=== PATIENT | male | born 1970 | race Hispanic/Latino ===

== ENCOUNTER 2017-07-09 21:51 | Inpatient (IN) | payer OTHER ==
[2017-07-09 22:51] LABS: Hematocrit 49.6 % (35.5-45.6); Hemoglobin 16.7 gm/dl (11.8-15.2); Mean Corpuscular HGB Conc 34 % (32-34); Mean Corpuscular Hemoglobin 30 pg (28-32); Mean Corpuscular Volume 90 fl (84-94); Platelet Count 265 K/mm3 (140-440); Red Blood Count 5.49 M/mm3 (3.65-5.03); Red Cell Distribution Width 13.5 % (13.2-15.2); White Blood Count 16.9 K/mm3 (4.5-11.0)
--- NOTE | 2017-07-09 22:51 | XRay Report ---
FINAL REPORT PROCEDURE: XR CHEST ROUTINE 2V TECHNIQUE: PA and lateral chest radiographs were obtained. CPT 63138 HISTORY: Shortness of breath COMPARISON: No prior studies are available for comparison. FINDINGS: Heart: Normal. Mediastinum/Vessels: There are surgical clips in the right mediastinal and hilar regions. Lungs/Pleural space: There is a moderate-sized right pleural effusion. There is blunting of the left posterior costophrenic sulcus, which may be related to a small effusion or pleural thickening. There is scarring and surgical clips at the right lung base. Upper lungs are well aerated. Bony thorax: No acute osseous abnormality. Other: IMPRESSION: Right lung postsurgical changes. There is moderate-sized right pleural effusion and small left pleural effusion versus pleural thickening
[2017-07-09 23:14] LABS: Anion Gap 23 mmol/L; BUN/Creatinine Ratio 11; Blood Urea Nitrogen 12 mg/dL (9-20); Calcium 9.3 mg/dL (8.4-10.2); Carbon Dioxide 22 mmol/L (22-30); Chloride 98.3 mmol/L (98-107); Glucose 98 mg/dL (75-100); Potassium 4.9 mmol/L (3.6-5.0); Sodium 138 mmol/L (137-145)
[2017-07-09 23:17] LABS: Basophils % (Manual) 0 % (0.0-1.8); Blastocytes % (Manual) 0 %; Diff Status Complete; Eosinophils % (Manual) 0 % (0.0-4.3); RBC Morphology Normal
[2017-07-10] MEDS ORDERED: PROVENTIL IH ONE ×2 (10:52→11:22)
[2017-07-10] MEDS ORDERED: ATROVENT IH ONE ×2 (10:52→11:22)
[2017-07-10] MEDS ORDERED: ROCEPHIN/NS 1 GM/50 ML 1 GM/50 ML BAG IV ONE (11:19)
[2017-07-10] MEDS ORDERED: DILAUDID IV ONE ×2 (11:19→12:50)
[2017-07-10] MEDS ORDERED: ZOFRAN IV ONE (11:19)
[2017-07-10] MEDS ORDERED: ZITHROMAX 500 MG in NACL 0.9% 250ML 250 ML IV ONE (12:00)
[2017-07-10] MEDS ORDERED: cefTRIAXone 1 GM in NACL 0.9% 20 ML IV ONE (12:30)
--- NOTE | 2017-07-10 12:48 | Cat Scan Report ---
CTA CHEST: HISTORY: Right sided chest pain, cough, fever, shortness of breath. COMPARISON: none. TECHNIQUE: Helical CT in 1.25mm intervals following IV contrast. Pulmonary embolus protocol. Sagittal and coronal reformatted images. Rotational MIP images. FINDINGS: Contrast bolus is satisfactory. No pulmonary embolus is identified. Thyroid gland: Normal. Tracheobronchial tree: Normal. Esophagus: Normal. Heart: Normal. Pericardium: Normal. Mediastinum: Normal. Lung [place]: Mild to moderate emphysematous changes are suspected. No evidence for mass, infiltrate or pneumothorax. Right thoracotomy changes are suspected, correlate with history. Pleural Spaces: Small right pleural effusion. Musculoskeletal: Unremarkable. IMPRESSION: No evidence for pulmonary embolus. Emphysematous changes. Small right pleural effusion. Suggestion of previous right thoracotomy changes, correlate with history.
[2017-07-10] MEDS ORDERED: TESSALON PERLES PO ONE (13:40)
--- NOTE | 2017-07-10 13:57 | Emergency Department Report ---
ED Shortness of Breath HPI - General Chief Complaint: Dyspnea/Respdistress Stated Complaint: SOB X 8 DAYS Time Seen by Provider: 07/10/17 10:15 Source: patient Mode of arrival: Ambulatory Limitations: No Limitations - History of Present Illness Initial Comments: 46-year-old male with a past medical history of asthma, Tourette's syndrome, necrotizing pneumonia requiring right lower lobe lobectomy in 2013 visits to the hospital complaining of right sided chest wall pain and shortness of breath. Patient has had shortness of breath the surgery that has progressively worsened. Patient complains of severe sharp right sided chest wall pain that feels like a sunburn. Pain increases with stretching, coughing, movement, or deep inspiration. Positive so she shortness of breath with intermittent wheezing. Positive productive cough for patient doesn't have a streptococcal or secretions. Fever 2 days reported at 102.3. PMD [facility] practice - Related Data Home Medications Medication Instructions Recorded Confirmed Last Taken OLANzapine [ZyPREXA] 5 mg PO QDAY 03/31/14 03/31/14 03/31/14 22:00 Previous Rx's Medication Instructions Recorded Last Taken Type Ondansetron [Zofran Odt] 8 mg PO TID PRN #20 tab.rapdis 04/01/14 Unknown Rx HYDROcodone/APAP 10-325 [Babylon 1 each PO Q8HR PRN #15 tablet 05/27/14 Unknown Rx 10-325 mg TAB] Promethazine [Phenergan] 25 mg PO Q6H PRN #15 tablet 05/27/14 Unknown Rx ALBUTEROL NEB's [Proventil 0.083% 2.5 mg IH TID PRN #1 neb 08/14/14 Unknown Rx NEBS] Ibuprofen [Motrin 800 MG tab] 800 mg PO TID PRN #21 tablet 08/14/14 Unknown Rx HYDROcodone/APAP 7.5-325 [Babylon 1 each PO Q8HR PRN #15 tablet 10/11/15 Unknown Rx 7.5/325] predniSONE [Deltasone] 20 mg PO QDAY #14 tab 10/11/15 Unknown Rx Oxycodone HCl/Acetaminophen 1 each PO Q6HR PRN #30 tablet 06/03/16 Unknown Rx [Percocet 10/325 mg] methOCARBAMOL [Robaxin TAB] 1,000 mg PO Q6H PRN #40 tab 06/03/16 Unknown Rx methOCARBAMOL [Robaxin TAB] 500 mg PO Q6H PRN #15 tablet 09/11/16 Unknown Rx oxyCODONE /ACETAMINOPHEN [Percocet 1 tab PO Q6HR PRN #14 tablet 09/11/16 Unknown Rx 5/325] Allergies Allergy/AdvReac Type Severity Reaction Status Date / Time ketorolac tromethamine Allergy Vomiting Verified 05/27/14 15:42 [From Toradol] tramadol AdvReac Unknown Verified 05/27/14 15:42 ED Review of Systems ROS: Stated complaint: SOB X 8 DAYS Other details as noted in HPI Comment: All other systems reviewed and negative Other: Constitutional: as per hpi Eyes: No eye pain visual changes or discharge ENT: No ear pain or throat pain Neck: Denies pain Respiratory: as per hpi Cardiovascular: Denies palpitations, syncope GI: Denies abdominal pain, nausea, vomiting, diarrhea : Denies dysuria Musculoskeletal: Denies back pain Skin: Denies rash, lesions, erythema Neurologic: Denies headache, numbness, weakness Psychiatric: Denies suicidal ideation, hallucinations ED Past Medical Hx - Past Medical History Hx Hypertension: No Hx Heart Attack/AMI: No Hx Congestive Heart Failure: No Hx Diabetes: No Hx Deep Vein Thrombosis: No Hx GERD: Yes Hx Liver Disease: No Hx Renal Disease: No Hx Sickle Cell Disease: No Hx Arthritis: No Hx Seizures: No Hx Kidney Stones: No Hx Psychiatric Treatment: Yes (TOURETTE SYNDROME) Hx Asthma: Yes Hx COPD: No Hx Dementia: No Hx HIV: No Additional medical history: necrotizing pneumonia- september 2013 - Surgical History Hx Coronary Stent: No Hx Open Heart Surgery: No Hx Pacemaker: No Hx Internal Defibrillator: No Hx Cholecystectomy: No Hx Appendectomy: No Hx Breast Surgery: No Additional Surgical History: Left testicle removed @ age 16, Bakari in left leg @ age 26, R lower lobectomy - Social History Smoking Status: Never Smoker Substance Use Type: None - Medications Home Medications: Home Medications Medication Instructions Recorded Confirmed Last Taken Type OLANzapine [ZyPREXA] 5 mg PO QDAY 03/31/14 03/31/14 03/31/14 22:00 History Ondansetron [Zofran Odt] 8 mg PO TID PRN #20 tab.rapdis 04/01/14 Unknown Rx HYDROcodone/APAP 10-325 [Babylon 1 each PO Q8HR PRN #15 tablet 05/27/14 Unknown Rx 10-325 mg TAB] Promethazine [Phenergan] 25 mg PO Q6H PRN #15 tablet 05/27/14 Unknown Rx ALBUTEROL NEB's [Proventil 0.083% 2.5 mg IH TID PRN #1 neb 08/14/14 Unknown Rx NEBS] Ibuprofen [Motrin 800 MG tab] 800 mg PO TID PRN #21 tablet 08/14/14 Unknown Rx HYDROcodone/APAP 7.5-325 [Babylon 1 each PO Q8HR PRN #15 tablet 10/11/15 Unknown Rx 7.5/325] predniSONE [Deltasone] 20 mg PO QDAY #14 tab 10/11/15 Unknown Rx Oxycodone HCl/Acetaminophen 1 each PO Q6HR PRN #30 tablet 06/03/16 Unknown Rx [Percocet 10/325 mg] methOCARBAMOL [Robaxin TAB] 1,000 mg PO Q6H PRN #40 tab 06/03/16 Unknown Rx methOCARBAMOL [Robaxin TAB] 500 mg PO Q6H PRN #15 tablet 09/11/16 Unknown Rx oxyCODONE /ACETAMINOPHEN [Percocet 1 tab PO Q6HR PRN #14 tablet 09/11/16 Unknown Rx 5/325] ED Physical Exam - General Limitations: No Limitations - Other Other exam information: General: No limitations, patient is alert in no acute distress Head exam: Atraumatic, normocephalic Eyes exam: Normal appearance ENT: Moist mucous membrane, normal oropharynx Neck exam: Normal inspection, full range of motion, no meningismus nontender Respiratory exam: Right lateral thoracic surgical scar. Reproducible Right chest wall tenderness to palpation Cardiovascular: Normal rate and rhythm, normal heart sounds Abdomen: Soft, nondistended, and nontender, with normal bowel sounds, no rebound, or guarding Extremity: Full range of motion normal inspection no deformity, no calf tenderness or edema Back: Normal Inspection, full range of motion, no tenderness Neurologic: Alert, oriented x3, cranial nerves intact, no motor or sensory deficit Psychiatric: normal affect, normal mood Skin: Warm, dry, intact ED Course Vital Signs 07/09/17 07/10/17 07/10/17 22:05 07:58 10:32 Temperature 97.9 F 98.5 F Pulse Rate 102 H 92 H 92 H Respiratory 16 18 21 Rate Blood Pressure 155/97 Blood Pressure 138/93 119/98 [Right] O2 Sat by Pulse 97 94 96 Oximetry 07/10/17 07/10/17 12:50 13:41 Temperature Pulse Rate 124 H 100 H Respiratory 22 19 Rate Blood Pressure Blood Pressure 160/91 143/87 [Right] O2 Sat by Pulse 97 95 Oximetry - Reevaluation(s) Reevaluation #1: 07/10/17 14:11 Patient had a repeat episode of right-sided chest pain with associated tachycardia secondary to pain. Right-sided chest pain rated 3/10 intensity. IV Rocephin and azithromycin initiated in the ED as well as Solu-Medrol 125. Patient treated with albuterol 10 mg and Atrovent 0.5 mg for shortness of breath and reports improvement 07/10/17 14:29 Patient removed with 2 L oxygen O2 saturation decreased to 86% on room air ED Medical Decision Making - Lab Data Result diagrams: 07/09/17 22:16 07/09/17 22:16 Lab Results 07/09/17 07/09/17 Range/Units 22:16 22:16 WBC 16.9 H (4.5-11.0) K/mm3 RBC 5.49 H (3.65-5.03) M/mm3 Hgb 16.7 H (11.8-15.2) gm/dl Hct 49.6 H (35.5-45.6) % MCV 90 (84-94) fl MCH 30 (28-32) pg MCHC 34 (32-34) % RDW 13.5 (13.2-15.2) % Plt Count 265 (140-440) K/mm3 Add Manual Diff Complete Total Counted 100 Seg Neutrophils % Director Talent Seg Neuts % (Manual) 92.0 H (40.0-70.0) % Band Neutrophils % 0 % Lymphocytes % (Manual) 5.0 L (13.4-35.0) % Reactive Lymphs % (Man) 0 % Monocytes % (Manual) 3.0 (0.0-7.3) % Eosinophils % (Manual) 0 (0.0-4.3) % Basophils % (Manual) 0 (0.0-1.8) % Metamyelocytes % 0 % Myelocytes % 0 % Promyelocytes % 0 % Blast Cells % 0 % Nucleated RBC % Not Reportable Seg Neutrophils # Man 15.5 H (1.8-7.7) K/mm3 Band Neutrophils # 0.0 K/mm3 Lymphocytes # (Manual) 0.8 L (1.2-5.4) K/mm3 Abs React Lymphs (Man) 0.0 K/mm3 Monocytes # (Manual) 0.5 (0.0-0.8) K/mm3 Eosinophils # (Manual) 0.0 (0.0-0.4) K/mm3 Basophils # (Manual) 0.0 (0.0-0.1) K/mm3 Metamyelocytes # 0.0 K/mm3 Myelocytes # 0.0 K/mm3 Promyelocytes # 0.0 K/mm3 Blast Cells # 0.0 K/mm3 WBC Morphology Not Reportable Hypersegmented Neuts Not Reportable Hyposegmented Neuts Not Reportable Hypogranular Neuts Not Reportable Smudge Cells Not Reportable Toxic Granulation Not Reportable Toxic Vacuolation Not Reportable Dohle Bodies Not Reportable Pelger-Huet Anomaly Not Reportable Nghia Rods Not Reportable Platelet Estimate Appears normal Clumped Platelets Not Reportable Plt Clumps, EDTA Not Reportable Large Platelets Not Reportable Giant Platelets Not Reportable Platelet Satelliting Not Reportable Plt Morphology Comment Not Reportable RBC Morphology Normal Dimorphic RBCs Not Reportable Polychromasia Not Reportable Hypochromasia Not Reportable Poikilocytosis Not Reportable Anisocytosis Not Reportable Microcytosis Not Reportable Macrocytosis Not Reportable Spherocytes Not Reportable Pappenheimer Bodies Not Reportable Sickle Cells Not Reportable Target Cells Not Reportable Tear Drop Cells Not Reportable Ovalocytes Not Reportable Helmet Cells Not Reportable [place] Bodies Not Reportable [place] Rings Not Reportable [place] Cells Not Reportable Bite Cells Not Reportable Crenated Cell Not Reportable Elliptocytes Not Reportable Acanthocytes (Spur) Not Reportable Rouleaux Not Reportable Hemoglobin C Crystals Not Reportable Schistocytes Not Reportable Malaria parasites Not Reportable Vivek Bodies Not Reportable Hem Pathologist Commnt No Sodium 138 (137-145) mmol/L Potassium 4.9 (3.6-5.0) mmol/L Chloride 98.3 (98-107) mmol/L Carbon Dioxide 22 (22-30) mmol/L Anion Gap 23 mmol/L BUN 12 (9-20) mg/dL Creatinine 1.1 (0.8-1.5) mg/dL Estimated GFR > 60 ml/min BUN/Creatinine Ratio 11 % Glucose 98 (75-100) mg/dL Calcium 9.3 (8.4-10.2) mg/dL Troponin T < 0.010 (0.00-0.029) ng/mL - EKG Data -: EKG Interpreted by Me EKG shows normal: sinus rhythm, axis (78), QRS complexes (80), ST-T waves (no stemi/t inv) Rate: normal (90) - EKG Data When compared to previous EKG there are: no significant change (09/10/16) - Radiology Data Radiology results: report reviewed chest xray: r lung postsurgical changes, moderate-sized pleural effusion and small plerual effusion vs pleural thickening CT angio chest: no pulm embolus, emphysematous changes, small right pleural effusion - Medical Decision Making Pt o2 sat decreased to 86% on room air, 2 L o2 reapplied. Pt will be admitted to the hospital for further treatment since pt does not take home oxygen. Patient received Rocephin, azithromycin IV, IV Solu-Medrol, in addition to Dilaudid and Zofran. - Differential Diagnosis PE, pneumonia, bronchitis, CHF, pleurisy, effusion Critical Care Time: No Critical care attestation.: If time is entered above; I have spent that time in minutes in the direct care of this critically ill patient, excluding procedure time. ED Disposition Clinical Impression: Right-sided chest wall pain, Acute bronchitis, Emphysema, Hypoxia, History of lobectomy of lung Disposition: OP ADMIT IP TO THIS HOSP Is pt being admited?: Yes Condition: Stable Time of Disposition: 14:30 (Dr Hartley/hosp)
[2017-07-10] MEDS ORDERED: ATIVAN IV ONE (14:56)
[2017-07-10] MEDS ORDERED: TYLENOL PO PRN (15:16)
[2017-07-10] MEDS ORDERED: MILK OF MAGNESIA PO PRN (15:16)
[2017-07-10] MEDS ORDERED: DULCOLAX PR PRN (15:16)
[2017-07-10] MEDS ORDERED: PROVENTIL IH PRN (15:16)
[2017-07-10] MEDS ORDERED: NACL 0.9% 1000 ML IV ONE (15:16)
[2017-07-10] MEDS ORDERED: VANCOMYCIN VIAL IV ONE (15:16)
[2017-07-10] MEDS ORDERED: PHENERGAN PO PRN (15:26)
[2017-07-10] MEDS ORDERED: MOTRIN PO PRN (15:26)
[2017-07-10] MEDS ORDERED: ZOFRAN ODT PO PRN (15:26)
[2017-07-10] MEDS ORDERED: VANCOMYCIN PHARMACY TO DOSE IV SCH (16:00)
[2017-07-10] MEDS ORDERED: VANCOMYCIN 2,000 MG in NACL 0.9% 500 ML 500 ML IV ONE (17:00)
[2017-07-10] MEDS: ZOSYN/NS 4.5GM/100ML 4.5 GM/100 ML VIAL IV SCH (18:01)
--- NOTE | 2017-07-10 18:11 | History and Physical Report ---
History of Present Illness Date of admission: 07/10/17 15:16 Chief complaint: its hard to breathe. History of present illness: 46 YO Male with GERD, [place], Tourette's Syndrome, Necrotizing Pneumonia S/P Lobectomy presents to ED for evaluation. Pt states that he has experienced fever to 102.3 and shortness of breath over the past 2 days with worsening symptoms over that same time period. Upon further questioning, Pt denies chest pain but acknowledges chest discomfort with deep breathing, coughing, or deep inspiration. No reported shaking chills, NVD, CP, Palpitations, hemoptysis, BRBPR, productive cough, or recent ill contacts. Pt seen and evaluated in ED and found to be in respiratory distress, and had evidence of sepsis. Pt treated IAW sepsis protocol. Past History Past Medical History: GERD, other (Tourette) Past Surgical History: Other (Left Testicle, R lobectomy, Left leg surgery) Social history: . denies: smoking, alcohol abuse, prescription drug abuse Family history: hypertension Medications and Allergies Allergies Allergy/AdvReac Type Severity Reaction Status Date / Time ketorolac tromethamine Allergy Vomiting Verified 05/27/14 15:42 [From Toradol] tramadol AdvReac Unknown Verified 05/27/14 15:42 Home Medications Medication Instructions Recorded Confirmed Last Taken Type ALBUTEROL NEB's [Proventil 0.083% 2.5 mg IH TID PRN #1 neb 08/14/14 07/10/17 Unknown Rx NEBS] ALBUTEROL Inhaler [Proair] 2 puff IH QID PRN 07/10/17 07/10/17 Unknown History Active Meds: Active Medications Acetaminophen (Tylenol) 650 mg PO Q4H PRN PRN Reason: Pain MILD(1-3)/Fever >100.5/BURRELL Acetaminophen/Hydrocodone Bitart (Amery 10/325) 1 each PO Q8HR PRN PRN Reason: Pain Albuterol (Proventil) 2.5 mg IH Q4HRT PRN PRN Reason: Shortness Of Breath Bisacodyl (Dulcolax) 10 mg [place] QDAY PRN PRN Reason: Constipation unrelieved by MOM Piperacillin Sod/Tazobactam Sod (Zosyn/Ns 4.5gm/100ml) 4.5 gm in 100 mls @ 200 mls/hr IV Q8H ALIYA PRN Reason: Protocol Last Admin: 07/10/17 18:01 Dose: 200 mls/hr Vancomycin HCl 2,000 mg/ (Sodium Chloride) 520 mls @ 250 mls/hr IV ONCE.ED ONE Stop: 07/10/17 19:04 Ibuprofen (Motrin) 800 mg PO TID PRN PRN Reason: Pain Magnesium Hydroxide (Milk Of Magnesia) 30 ml PO Q4H PRN PRN Reason: Constipation Methocarbamol (Robaxin) 500 mg PO Q6H PRN PRN Reason: Pain Olanzapine (Zyprexa) 5 mg PO QDAY ALIYA Ondansetron HCl (Zofran) 4 mg IV Q8H PRN PRN Reason: N/V unrelieved by Reglan Ondansetron HCl (Zofran Odt) 8 mg PO TID PRN PRN Reason: Nausea Prednisone (Deltasone) 20 mg PO QDAY ALIYA Promethazine HCl (Phenergan) 25 mg PO Q6H PRN PRN Reason: Nausea Vancomycin HCl (Vancomycin Pharmacy To Dose) 1 each IV PKCONSULT ALIYA PRN Reason: Protocol Review of Systems Constitutional: fever, no weight loss, no weight gain, no chills, no sweats Cardiovascular: shortness of breath, no chest pain, no orthopnea, no palpitations, no rapid/irregular heart beat, no edema, no syncope, no dyspnea on exertion, no paroxysmal nocturnal dyspnea, no claudication, no phlebitis Respiratory: no cough, no cough with sputum, no excessive sputum Gastrointestinal: no nausea, no vomiting, no diarrhea Genitourinary Male: no dysuria, no hematuria, no flank pain, no discharge, no urinary frequency Rectal: no pain, no incontinence, no bleeding Musculoskeletal: no neck stiffness, no neck pain, no shooting arm pain, no arm numbness/tingling, no low back pain Integumentary: no rash, no pruritis, no redness, no sores, no wounds, no jaundice Neurological: no transient paralysis, no paralysis, no weakness, no parathesias , no numbness, no tingling, no seizures, no syncope Psychiatric: no anxiety, no memory loss, no change in sleep habits, no sleep disturbances, no insomnia, no hypersomnia, no change in appetite Endocrine: no cold intolerance, no heat intolerance, no polyphagia, no excessive thirst, no polydipsia, no polyuria, no nocturia, no excessive sweating Hematologic/Lymphatic: no easy bruising, no easy bleeding Allergic/Immunologic: no urticaria, no allergic rhinitis, no wheezing Exam - Constitutional Vitals: Temp Pulse Resp BP Pulse Ox 98.5 F 114 H 19 148/91 95 07/10/17 10:32 07/10/17 15:25 07/10/17 13:41 07/10/17 15:25 07/10/17 13:41 General appearance: Present: mild distress - EENT Eyes: Present: PERRL ENT: hearing intact, clear oral mucosa - Neck Neck: Present: supple, normal ROM - Respiratory Respiratory effort: labored Respiratory: bilateral: diminished, rhonchi - Cardiovascular Heart Sounds: Present: S1 & S2. Absent: rub, click - Extremities Extremities: pulses symmetrical, No edema Peripheral Pulses: within normal limits - Abdominal General gastrointestinal: Present: soft, non-tender, non-distended, normal bowel sounds Male genitourinary: Present: normal - Integumentary Integumentary: Present: clear, warm, dry - Musculoskeletal Musculoskeletal: gait normal, strength equal bilaterally - Psychiatric Psychiatric: appropriate mood/affect, intact judgment & insight - Neurologic Neurologic: CNII-XII intact, moves all extremities Results - Labs CBC & Chem 7: 07/09/17 22:16 07/09/17 22:16 Labs: Abnormal lab results 07/09/17 Range/Units 22:16 WBC 16.9 H (4.5-11.0) K/mm3 RBC 5.49 H (3.65-5.03) M/mm3 Hgb 16.7 H (11.8-15.2) gm/dl Hct 49.6 H (35.5-45.6) % Seg Neuts % (Manual) 92.0 H (40.0-70.0) % Lymphocytes % (Manual) 5.0 L (13.4-35.0) % Seg Neutrophils # Man 15.5 H (1.8-7.7) K/mm3 Lymphocytes # (Manual) 0.8 L (1.2-5.4) K/mm3 Assessment and Plan - Patient Problems (1) Sepsis Current Visit: Yes Status: Acute Plan to address problem: IV abx, IVF, blood cultures, urinalysis, Chest XR, serial lactic acid level, monitor uop q shift, (2) Respiratory failure Current Visit: Yes Status: Acute Plan to address problem: Supplemental oxygen, nebs, aspiration precautions, NIPPV as clinically indicated , treat sepsis, (3) Accelerated hypertension Current Visit: Yes Status: Acute Plan to address problem: monitor bp q shift, hydralazine prn for systolic above 155, continue medical management (4) GERD (gastroesophageal reflux disease) Current Visit: No Status: Chronic Plan to address problem: PPI therapy (5) DVT prophylaxis Current Visit: Yes Status: Acute
[2017-07-10] MEDS ORDERED: NACL 0.9% 1000 ML 1,000 ML ONE (18:18)
--- NOTE | 2017-07-10 18:51 | XRay Report ---
FINAL REPORT PROCEDURE: XR SPINE CERVICAL 3V TECHNIQUE: Cervical spine radiographs, AP, lateral, swimmer's and open-mouth odontoid views. CPT 77182 HISTORY: Neck pain. COMPARISON: No prior studies are available for comparison. FINDINGS: Prevertebral soft tissues: Normal . Alignment: Normal . Vertebral body heights/Disk spaces: Normal . Fracture(s): None . Facets: Normal . Bone mineralization: Normal . IMPRESSION: No radiographic evidence of acute abnormality.
[2017-07-10] MEDS: ROBAXIN PO PRN (21:09)
[2017-07-10] MEDS: NORCO 10/325 PO PRN (21:10)
[2017-07-11] MEDS: ZOSYN/NS 4.5GM/100ML 4.5 GM/100 ML VIAL IV SCH ×3 (05:10→17:48)
[2017-07-11] MEDS: ROBAXIN PO PRN (05:52)
[2017-07-11] MEDS: NORCO 10/325 PO PRN ×3 (05:52→22:30)
--- NOTE | 2017-07-11 07:40 | Progress Note ---
Assessment and Plan Assessment and plan: Sepsis Pneumonia with right sided parapneumonic effusion Lactic acidosis Tourette's syndrome Respiratory failure - continue IV Vancomycin and Zosyn - continue steroid and oxygen support - Continue appropriate home medications - Pain control DVT prophylaxis - Lovenox Disposition - Continue inpatient care History Interval history: Patient was seen and evaluated this morning, patient is complaining right sided pleuritic chest pain. Hospitalist Physical - Physical exam Narrative exam: Not in cardiopulmonary distress. The patient appeared well nourished and normally developed. Vital signs as documented. Head exam is unremarkable. No scleral icterus . Neck is without jugular venous distension, thyromegaly, or carotid bruits. Lungs are clear to auscultation. Cardiac exam reveals regular rate and Rhythm. First and second heart sounds normal. No murmurs, rubs or gallops. Abdominal exam reveals normal bowel sounds, no masses, no organomegaly and no aortic enlargement. Extremities are nonedematous and both femoral and pedal pulses are normal. 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 No focal weakness. - Constitutional Vitals: Temp Pulse Resp BP Pulse Ox 97.8 F 98 H 20 119/68 95 07/10/17 20:54 07/10/17 20:54 07/11/17 05:52 07/10/17 20:54 07/10/17 20:54 General appearance: Present: mild distress Results - Labs CBC & Chem 7: 07/11/17 09:03 07/09/17 22:16 Labs: Laboratory Last Values WBC 16.9 K/mm3 (4.5-11.0) H 07/09/17 22:16 RBC 5.49 M/mm3 (3.65-5.03) H 07/09/17 22:16 Hgb 16.7 gm/dl (11.8-15.2) H 07/09/17 22:16 Hct 49.6 % (35.5-45.6) H 07/09/17 22:16 MCV 90 fl (84-94) 07/09/17 22:16 MCH 30 pg (28-32) 07/09/17 22:16 MCHC 34 % (32-34) 07/09/17 22:16 RDW 13.5 % (13.2-15.2) 07/09/17 22:16 Plt Count 265 K/mm3 (140-440) 07/09/17 22:16 Add Manual Diff Complete 07/09/17 22:16 Total Counted 100 07/09/17 22:16 Seg Neutrophils % Slumber Room Attendant 07/09/17 22:16 Seg Neuts % (Manual) 92.0 % (40.0-70.0) H 07/09/17 22:16 Band Neutrophils % 0 % 07/09/17 22:16 Lymphocytes % (Manual) 5.0 % (13.4-35.0) L 07/09/17 22:16 Reactive Lymphs % (Man) 0 % 07/09/17 22:16 Monocytes % (Manual) 3.0 % (0.0-7.3) 07/09/17 22:16 Eosinophils % (Manual) 0 % (0.0-4.3) 07/09/17 22:16 Basophils % (Manual) 0 % (0.0-1.8) 07/09/17 22:16 Metamyelocytes % 0 % 07/09/17 22:16 Myelocytes % 0 % 07/09/17 22:16 Promyelocytes % 0 % 07/09/17 22:16 Blast Cells % 0 % 07/09/17 22:16 Nucleated RBC % Not Reportable 07/09/17 22:16 Seg Neutrophils # Man 15.5 K/mm3 (1.8-7.7) H 07/09/17 22:16 Band Neutrophils # 0.0 K/mm3 07/09/17 22:16 Lymphocytes # (Manual) 0.8 K/mm3 (1.2-5.4) L 07/09/17 22:16 Abs React Lymphs (Man) 0.0 K/mm3 07/09/17 22:16 Monocytes # (Manual) 0.5 K/mm3 (0.0-0.8) 07/09/17 22:16 Eosinophils # (Manual) 0.0 K/mm3 (0.0-0.4) 07/09/17 22:16 Basophils # (Manual) 0.0 K/mm3 (0.0-0.1) 07/09/17 22:16 Metamyelocytes # 0.0 K/mm3 07/09/17 22:16 Myelocytes # 0.0 K/mm3 07/09/17 22:16 Promyelocytes # 0.0 K/mm3 07/09/17 22:16 Blast Cells # 0.0 K/mm3 07/09/17 22:16 WBC Morphology Not Reportable 07/09/17 22:16 Hypersegmented Neuts Not Reportable 07/09/17 22:16 Hyposegmented Neuts Not Reportable 07/09/17 22:16 Hypogranular Neuts Not Reportable 07/09/17 22:16 Smudge Cells Not Reportable 07/09/17 22:16 Toxic Granulation Not Reportable 07/09/17 22:16 Toxic Vacuolation Not Reportable 07/09/17 22:16 Dohle Bodies Not Reportable 07/09/17 22:16 Pelger-Huet Anomaly Not Reportable 07/09/17 22:16 Nghia Rods Not Reportable 07/09/17 22:16 Platelet Estimate Appears normal 07/09/17 22:16 Clumped Platelets Not Reportable 07/09/17 22:16 Plt Clumps, EDTA Not Reportable 07/09/17 22:16 Large Platelets Not Reportable 07/09/17 22:16 Giant Platelets Not Reportable 07/09/17 22:16 Platelet Satelliting Not Reportable 07/09/17 22:16 Plt Morphology Comment Not Reportable 07/09/17 22:16 RBC Morphology Normal 07/09/17 22:16 Dimorphic RBCs Not Reportable 07/09/17 22:16 Polychromasia Not Reportable 07/09/17 22:16 Hypochromasia Not Reportable 07/09/17 22:16 Poikilocytosis Not Reportable 07/09/17 22:16 Anisocytosis Not Reportable 07/09/17 22:16 Microcytosis Not Reportable 07/09/17 22:16 Macrocytosis Not Reportable 07/09/17 22:16 Spherocytes Not Reportable 07/09/17 22:16 Pappenheimer Bodies Not Reportable 07/09/17 22:16 Sickle Cells Not Reportable 07/09/17 22:16 Target Cells Not Reportable 07/09/17 22:16 Tear Drop Cells Not Reportable 07/09/17 22:16 Ovalocytes Not Reportable 07/09/17 22:16 Helmet Cells Not Reportable 07/09/17 22:16 [place] Bodies Not Reportable 07/09/17 22:16 [place] Rings Not Reportable 07/09/17 22:16 [place] Cells Not Reportable 07/09/17 22:16 Bite Cells Not Reportable 07/09/17 22:16 Crenated Cell Not Reportable 07/09/17 22:16 Elliptocytes Not Reportable 07/09/17 22:16 Acanthocytes (Spur) Not Reportable 07/09/17 22:16 Rouleaux Not Reportable 07/09/17 22:16 Hemoglobin C Crystals Not Reportable 07/09/17 22:16 Schistocytes Not Reportable 07/09/17 22:16 Malaria parasites Not Reportable 07/09/17 22:16 Vivek Bodies Not Reportable 07/09/17 22:16 Hem Pathologist Commnt No 07/09/17 22:16 Sodium 138 mmol/L (137-145) 07/09/17 22:16 Potassium 4.9 mmol/L (3.6-5.0) 07/09/17 22:16 Chloride 98.3 mmol/L (98-107) 07/09/17 22:16 Carbon Dioxide 22 mmol/L (22-30) 07/09/17 22:16 Anion Gap 23 mmol/L 07/09/17 22:16 BUN 12 mg/dL (9-20) 07/09/17 22:16 Creatinine 1.1 mg/dL (0.8-1.5) 07/09/17 22:16 Estimated GFR > 60 ml/min 07/09/17 22:16 BUN/Creatinine Ratio 11 % 07/09/17 22:16 Glucose 98 mg/dL (75-100) 07/09/17 22:16 Lactic Acid 3.40 mmol/L (0.7-2.0) H* 07/10/17 21:09 Calcium 9.3 mg/dL (8.4-10.2) 07/09/17 22:16 Troponin T < 0.010 ng/mL (0.00-0.029) 07/09/17 22:16 Leukocytosis
[2017-07-11] MEDS: VANCOMYCIN 1,750 MG in NACL 0.9% 500 ML 500 ML IV SCH ×2 (08:00→22:25)
[2017-07-11 09:24] LABS: Basophils % (Auto) 0.1 % (0.0-1.8); Hematocrit 42.7 % (35.5-45.6); Hemoglobin 14.3 gm/dl (11.8-15.2); Mean Corpuscular HGB Conc 34 % (32-34); Mean Corpuscular Hemoglobin 30 pg (28-32); Mean Corpuscular Volume 91 fl (84-94); Platelet Count 259 K/mm3 (140-440); Red Cell Distribution Width 13.5 % (13.2-15.2); White Blood Count 19.2 K/mm3 (4.5-11.0)
[2017-07-11] MEDS ORDERED: DILAUDID IM ONE (10:28)
[2017-07-11] MEDS: DELTASONE PO SCH (11:04)
[2017-07-11] MEDS ORDERED: Fluarix Quad 2017-2018(36 MOS+ IM ONE (12:00)
[2017-07-11] MEDS: ZOFRAN IV PRN (12:58)
[2017-07-11] MEDS: TESSALON PERLES PO SCH ×2 (13:51→22:29)
[2017-07-11] MEDS: LOVENOX SUB-Q SCH (22:28)
[2017-07-11 23:45] LABS: Bacteria,Urine 1+ /HPF (Negative); Mucus,Urine FEW /HPF; WBC,Urine < 1.0 /HPF (0.0-6.0)
[2017-07-12 00:02] LABS: Bilirubin,Urine NEG (Negative); Blood,Urine NEG (Negative); Ketones,Urine NEG (Negative); Leukocyte Esterase,Urine NEG (Negative); Nitrite,Urine NEG (Negative); Protein,Urine <15 mg/dL mg/dL (Negative); Urobilinogen,Urine < 2.0 mg/dL (<2.0)
[2017-07-12] MEDS: ROBAXIN PO PRN ×2 (00:39→21:24)
[2017-07-12] MEDS: ZOSYN/NS 4.5GM/100ML 4.5 GM/100 ML VIAL IV SCH ×3 (02:30→16:30)
[2017-07-12] MEDS ORDERED: RESTORIL PO ONE (04:46)
[2017-07-12] MEDS: TESSALON PERLES PO SCH ×3 (06:17→21:25)
[2017-07-12 06:27] LABS: Basophils % (Auto) 0.4 % (0.0-1.8); Eosinophils % (Auto) 2.1 % (0.0-4.3); Hematocrit 39.9 % (35.5-45.6); Hemoglobin 13.5 gm/dl (11.8-15.2); Mean Corpuscular HGB Conc 34 % (32-34); Mean Corpuscular Hemoglobin 31 pg (28-32); Mean Corpuscular Volume 91 fl (84-94); Platelet Count 210 K/mm3 (140-440); Red Blood Count 4.36 M/mm3 (3.65-5.03); Red Cell Distribution Width 13.5 % (13.2-15.2); White Blood Count 10.5 K/mm3 (4.5-11.0)
[2017-07-12 06:40] LABS: Anion Gap 16 mmol/L; BUN/Creatinine Ratio 17; Blood Urea Nitrogen 15 mg/dL (9-20); Calcium 7.8 mg/dL (8.4-10.2); Carbon Dioxide 27 mmol/L (22-30); Chloride 103.9 mmol/L (98-107); Glucose 100 mg/dL (75-100); Potassium 4.2 mmol/L (3.6-5.0); Sodium 143 mmol/L (137-145)
[2017-07-12] MEDS: DELTASONE PO SCH (09:23)
[2017-07-12] MEDS: VANCOMYCIN 1,750 MG in NACL 0.9% 500 ML 500 ML IV SCH ×2 (09:24→20:04)
[2017-07-12] MEDS ORDERED: MORPHINE IV PRN (09:28)
--- NOTE | 2017-07-12 10:12 | XRay Report ---
AP CHEST: HISTORY: Right pleural effusion Small right pleural effusion is unchanged since 07/09/17. Minor scarring at the right lung base is also unchanged. The left lung is clear. Heart size and pulmonary vascularity remain within normal limits. IMPRESSION: No change in the small right pleural effusion.
--- NOTE | 2017-07-12 11:49 | Progress Note ---
Assessment and Plan Assessment and plan: Sepsis Pneumonia with right sided parapneumonic effusion Lactic acidosis - resolved Tourette's syndrome Respiratory failure - continue IV Vancomycin and Zosyn, improving - continue steroid and oxygen support - Continue appropriate home medications - Pain control DVT prophylaxis - Lovenox Disposition - Possible DC tomorrow. History Interval history: Patient was seen and evaluated this morning, patient is complaining right sided pleuritic chest pain. Hospitalist Physical - Physical exam Narrative exam: Not in cardiopulmonary distress. The patient appeared well nourished and normally developed. Vital signs as documented. Head exam is unremarkable. No scleral icterus . Neck is without jugular venous distension, thyromegaly, or carotid bruits. Lungs are clear to auscultation. Cardiac exam reveals regular rate and Rhythm. First and second heart sounds normal. No murmurs, rubs or gallops. Abdominal exam reveals normal bowel sounds, no masses, no organomegaly and no aortic enlargement. Extremities are nonedematous and both femoral and pedal pulses are normal. ORAL AND MAXILLOFACIAL PATHOLOGIST: Alert and oriented 3. No focal weakness. - Constitutional Vitals: Temp Pulse Resp BP Pulse Ox 97.8 F 78 18 113/73 98 07/11/17 22:47 07/11/17 22:47 07/11/17 22:47 07/11/17 22:47 07/12/17 07:54 General appearance: Present: mild distress Results - Labs CBC & Chem 7: 07/12/17 05:25 07/12/17 05:25 Labs: Laboratory Last Values WBC 10.5 K/mm3 (4.5-11.0) 07/12/17 05:25 RBC 4.36 M/mm3 (3.65-5.03) 07/12/17 05:25 Hgb 13.5 gm/dl (11.8-15.2) 07/12/17 05:25 Hct 39.9 % (35.5-45.6) 07/12/17 05:25 MCV 91 fl (84-94) 07/12/17 05:25 MCH 31 pg (28-32) 07/12/17 05:25 MCHC 34 % (32-34) 07/12/17 05:25 RDW 13.5 % (13.2-15.2) 07/12/17 05:25 Plt Count 210 K/mm3 (140-440) 07/12/17 05:25 Lymph % (Auto) 20.0 % (13.4-35.0) 07/12/17 05:25 [place] % (Auto) 11.4 % (0.0-7.3) H 07/12/17 05:25 Eos % (Auto) 2.1 % (0.0-4.3) 07/12/17 05:25 Baso % (Auto) 0.4 % (0.0-1.8) 07/12/17 05:25 Lymph # 2.1 K/mm3 (1.2-5.4) 07/12/17 05:25 Alexander # 1.2 K/mm3 (0.0-0.8) H 07/12/17 05:25 Eos # 0.2 K/mm3 (0.0-0.4) 07/12/17 05:25 Baso # 0.0 K/mm3 (0.0-0.1) 07/12/17 05:25 Add Manual Diff Complete 07/09/17 22:16 Total Counted 100 07/09/17 22:16 Seg Neutrophils % 66.1 % (40.0-70.0) 07/12/17 05:25 Seg Neuts % (Manual) 92.0 % (40.0-70.0) H 07/09/17 22:16 Band Neutrophils % 0 % 07/09/17 22:16 Lymphocytes % (Manual) 5.0 % (13.4-35.0) L 07/09/17 22:16 Reactive Lymphs % (Man) 0 % 07/09/17 22:16 Monocytes % (Manual) 3.0 % (0.0-7.3) 07/09/17 22:16 Eosinophils % (Manual) 0 % (0.0-4.3) 07/09/17 22:16 Basophils % (Manual) 0 % (0.0-1.8) 07/09/17 22:16 Metamyelocytes % 0 % 07/09/17 22:16 Myelocytes % 0 % 07/09/17 22:16 Promyelocytes % 0 % 07/09/17 22:16 Blast Cells % 0 % 07/09/17 22:16 Nucleated RBC % Not Reportable 07/09/17 22:16 Seg Neutrophils # 6.9 K/mm3 (1.8-7.7) 07/12/17 05:25 Seg Neutrophils # Man 15.5 K/mm3 (1.8-7.7) H 07/09/17 22:16 Band Neutrophils # 0.0 K/mm3 07/09/17 22:16 Lymphocytes # (Manual) 0.8 K/mm3 (1.2-5.4) L 07/09/17 22:16 Abs React Lymphs (Man) 0.0 K/mm3 07/09/17 22:16 Monocytes # (Manual) 0.5 K/mm3 (0.0-0.8) 07/09/17 22:16 Eosinophils # (Manual) 0.0 K/mm3 (0.0-0.4) 07/09/17 22:16 Basophils # (Manual) 0.0 K/mm3 (0.0-0.1) 07/09/17 22:16 Metamyelocytes # 0.0 K/mm3 07/09/17 22:16 Myelocytes # 0.0 K/mm3 07/09/17 22:16 Promyelocytes # 0.0 K/mm3 07/09/17 22:16 Blast Cells # 0.0 K/mm3 07/09/17 22:16 WBC Morphology Not Reportable 07/09/17 22:16 Hypersegmented Neuts Not Reportable 07/09/17 22:16 Hyposegmented Neuts Not Reportable 07/09/17 22:16 Hypogranular Neuts Not Reportable 07/09/17 22:16 Smudge Cells Not Reportable 07/09/17 22:16 Toxic Granulation Not Reportable 07/09/17 22:16 Toxic Vacuolation Not Reportable 07/09/17 22:16 Dohle Bodies Not Reportable 07/09/17 22:16 Pelger-Huet Anomaly Not Reportable 07/09/17 22:16 Nghia Rods Not Reportable 07/09/17 22:16 Platelet Estimate Appears normal 07/09/17 22:16 Clumped Platelets Not Reportable 07/09/17 22:16 Plt Clumps, EDTA Not Reportable 07/09/17 22:16 Large Platelets Not Reportable 07/09/17 22:16 Giant Platelets Not Reportable 07/09/17 22:16 Platelet Satelliting Not Reportable 07/09/17 22:16 Plt Morphology Comment Not Reportable 07/09/17 22:16 RBC Morphology Normal 07/09/17 22:16 Dimorphic RBCs Not Reportable 07/09/17 22:16 Polychromasia Not Reportable 07/09/17 22:16 Hypochromasia Not Reportable 07/09/17 22:16 Poikilocytosis Not Reportable 07/09/17 22:16 Anisocytosis Not Reportable 07/09/17 22:16 Microcytosis Not Reportable 07/09/17 22:16 Macrocytosis Not Reportable 07/09/17 22:16 Spherocytes Not Reportable 07/09/17 22:16 Pappenheimer Bodies Not Reportable 07/09/17 22:16 Sickle Cells Not Reportable 07/09/17 22:16 Target Cells Not Reportable 07/09/17 22:16 Tear Drop Cells Not Reportable 07/09/17 22:16 Ovalocytes Not Reportable 07/09/17 22:16 Helmet Cells Not Reportable 07/09/17 22:16 [place] Bodies Not Reportable 07/09/17 22:16 [place] Rings Not Reportable 07/09/17 22:16 [place] Cells Not Reportable 07/09/17 22:16 Bite Cells Not Reportable 07/09/17 22:16 Crenated Cell Not Reportable 07/09/17 22:16 Elliptocytes Not Reportable 07/09/17 22:16 Acanthocytes (Spur) Not Reportable 07/09/17 22:16 Rouleaux Not Reportable 07/09/17 22:16 Hemoglobin C Crystals Not Reportable 07/09/17 22:16 Schistocytes Not Reportable 07/09/17 22:16 Malaria parasites Not Reportable 07/09/17 22:16 Vivek Bodies Not Reportable 07/09/17 22:16 Hem Pathologist Commnt No 07/09/17 22:16 Sodium 143 mmol/L (137-145) 07/12/17 05:25 Potassium 4.2 mmol/L (3.6-5.0) 07/12/17 05:25 Chloride 103.9 mmol/L (98-107) 07/12/17 05:25 Carbon Dioxide 27 mmol/L (22-30) 07/12/17 05:25 Anion Gap 16 mmol/L 07/12/17 05:25 BUN 15 mg/dL (9-20) 07/12/17 05:25 Creatinine 0.9 mg/dL (0.8-1.5) 07/12/17 05:25 Estimated GFR > 60 ml/min 07/12/17 05:25 BUN/Creatinine Ratio 17 % 07/12/17 05:25 Glucose 100 mg/dL (75-100) 07/12/17 05:25 Lactic Acid 1.10 mmol/L (0.7-2.0) 07/12/17 07:36 Calcium 7.8 mg/dL (8.4-10.2) L D 07/12/17 05:25 Troponin T < 0.010 ng/mL (0.00-0.029) 07/09/17 22:16 C-Reactive Protein 0.70 mg/dL (0.00-1.30) 07/12/17 07:36 Urine Color Yellow (Yellow) 07/10/17 Unknown Urine Turbidity Clear (Clear) 07/10/17 Unknown Urine pH 5.0 (5.0-7.0) 07/10/17 Unknown Ur Specific [place] 1.018 (1.003-1.030) 07/10/17 Unknown Urine Protein <15 mg/dl mg/dL (Negative) 07/10/17 Unknown Urine Glucose (UA) Neg mg/dL (Negative) 07/10/17 Unknown Urine Ketones Neg mg/dL (Negative) 07/10/17 Unknown Urine Blood Neg (Negative) 07/10/17 Unknown Urine Nitrite Neg (Negative) 07/10/17 Unknown Ur Reducing Substances Not Reportable 07/10/17 Unknown Urine Bilirubin Neg (Negative) 07/10/17 Unknown Urine Ictotest Not Reportable 07/10/17 Unknown Urine Urobilinogen < 2.0 mg/dL (<2.0) 07/10/17 Unknown Ur Leukocyte Esterase Neg (Negative) 07/10/17 Unknown Urine WBC (Auto) < 1.0 /HPF (0.0-6.0) 07/10/17 Unknown Urine RBC (Auto) 3.0 /HPF (0.0-6.0) 07/10/17 Unknown Urine Bacteria (Auto) 1+ /HPF (Negative) 07/10/17 Unknown Urine Mucus Few /HPF 07/10/17 Unknown
[2017-07-12] MEDS: DILAUDID IV PRN ×2 (12:00→19:58)
[2017-07-12] MEDS: ZOFRAN IV PRN (12:06)
[2017-07-12] MEDS: NORCO 10/325 PO PRN (16:30)
[2017-07-12] MEDS: LOVENOX SUB-Q SCH (21:25)
[2017-07-13] MEDS: ZOSYN/NS 4.5GM/100ML 4.5 GM/100 ML VIAL IV SCH ×2 (01:20→10:00)
[2017-07-13] MEDS: NORCO 10/325 PO PRN ×2 (02:11→07:53)
[2017-07-13] MEDS: TESSALON PERLES PO SCH (06:14)
[2017-07-13] MEDS: DILAUDID IV PRN (06:14)
[2017-07-13 06:32] LABS: Basophils % (Auto) 0.3 % (0.0-1.8); Eosinophils % (Auto) 2.5 % (0.0-4.3); Hematocrit 41.3 % (35.5-45.6); Hemoglobin 13.5 gm/dl (11.8-15.2); Mean Corpuscular HGB Conc 33 % (32-34); Mean Corpuscular Hemoglobin 30 pg (28-32); Mean Corpuscular Volume 92 fl (84-94); Platelet Count 203 K/mm3 (140-440); Red Blood Count 4.51 M/mm3 (3.65-5.03); Red Cell Distribution Width 13.7 % (13.2-15.2); White Blood Count 10.3 K/mm3 (4.5-11.0)
[2017-07-13 06:54] LABS: BUN/Creatinine Ratio 12; Blood Urea Nitrogen 12 mg/dL (9-20); Calcium 8.2 mg/dL (8.4-10.2); Carbon Dioxide 32 mmol/L (22-30); Glucose 101 mg/dL (75-100)
[2017-07-13 06:55] LABS: Anion Gap 12 mmol/L; Potassium 4.3 mmol/L (3.6-5.0); Sodium 141 mmol/L (137-145)
[2017-07-13] MEDS: VANCOMYCIN 1,750 MG in NACL 0.9% 500 ML 500 ML IV SCH (07:59)
[2017-07-13 08:57] VITALS: BP 141/87
--- NOTE | 2017-07-13 09:31 | Discharge Summary ---
Providers - Providers Date of Admission: 07/10/17 15:16 Attending physician: EZEKIEL PERRY MD Primary care physician: DELIVERY TABLE FEEDER Hospitalization Reason for admission: Pneumonia, sepsis Condition: Stable Pertinent studies: CTA chest, no PE, small right-sided pleural effusion, suggestive of previous right-sided thoracotomy Hospital course: 46 YO Male with GERD, [place], Tourette's Syndrome, Necrotizing Pneumonia S/P Lobectomy presents to ED for evaluation. Pt states that he has experienced fever to 102.3 and shortness of breath over the past 2 days with worsening symptoms over that same time period. Upon further questioning, Pt denies chest pain but acknowledges chest discomfort with deep breathing, coughing, or deep inspiration. No reported shaking chills, NVD, CP, Palpitations, hemoptysis, BRBPR, productive cough, or recent ill contacts. Pt seen and evaluated in ED and found to be in respiratory distress, and had evidence of sepsis. Pt treated [facility] sepsis protocol. Patient was admitted to the floor and managed for sepsis/pneumonia according to sepsis protocol and patient showed marked improvement. WBC trended down, lactic acidosis , pain, and cough resolved. Patient was hemodynamically stable and discharged home with by mouth Levaquin for a total of 7 days. Patient's questions and concerns were addressed at the bedside. Patient advised to follow -up with his primary care physician in a week or 2. Disposition: - TO HOME OR SELFCARE Time spent for discharge: 31 minutes - Discharge Diagnoses (1) History of lobectomy of lung Status: Acute (2) Hypoxia Status: Acute (3) Respiratory failure Status: Acute (4) Pleurisy with effusion Status: Acute (5) Pneumonia Status: Chronic Core Measure Documentation - Palliative Care Palliative Care/ Comfort Measures: Not Applicable - Core Measures Any of the following diagnoses?: none Exam - Physical Exam Narrative exam: Not in cardiopulmonary distress. The patient appeared well nourished and normally developed. Vital signs as documented. Head exam is unremarkable. No scleral icterus . Neck is without jugular venous distension, thyromegaly, or carotid bruits. Lungs are clear to auscultation. Cardiac exam reveals regular rate and Rhythm. First and second heart sounds normal. No murmurs, rubs or gallops. Abdominal exam reveals normal bowel sounds, no masses, no organomegaly and no aortic enlargement. Extremities are nonedematous and both femoral and pedal pulses are normal. 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 No focal weakness. - Constitutional Vitals: Temp Pulse Resp BP Pulse Ox 97.4 F L 69 22 141/87 96 07/13/17 08:47 07/13/17 08:47 07/13/17 08:47 07/13/17 08:47 07/13/17 08:47 Plan Activity: no restrictions Weight Bearing Status: Full Weight Bearing Diet: low salt Additional Instructions: Please follow @[facility] in 2 weeks Follow up with: PRIMARY CARE, [Primary Care Provider] - 7 Days Prescriptions: ALBUTEROL Inhaler [ProAir HFA Inhaler] 2 puff IH QID PRN #1 inha PRN Reason: Shortness Of Breath guaiFENesin DM [Guaifenesin Dm Syrup] 10 ml PO Q4H PRN #240 ml PRN Reason: Cough HYDROcodone/APAP 10-325 [Freedom 10-325 mg TAB] 1 each PO Q8HR PRN #12 tablet PRN Reason: Pain Levofloxacin [Levaquin TAB] 500 mg PO QDAY #7 tablet
[2017-07-13] MEDS: DELTASONE PO SCH (11:34)
== END 2017-07-13 11:45 | disposition home or self-care (01) | DRG 871 ==
LOC: ED 21:51 → 3A 07-10 15:16
PROVIDERS: ADMIT Internal Medicine; ATTEND Internal Medicine
PROC: 3E0234Z Introduction of Serum, Toxoid and Vaccine into Muscle, Percutaneous Approach (ICD-10-PCS; principal; 2017-07-11)
DX: A41.9 Sepsis, unspecified organism (principal); J96.90 Respiratory failure, unspecified, unspecified whether with hypoxia or hypercapnia; J18.9 Pneumonia, unspecified organism; I10 Essential (primary) hypertension; K21.9 Gastro-esophageal reflux disease without esophagitis; J20.9 Acute bronchitis, unspecified; J45.909 Unspecified asthma, uncomplicated; F95.2 Tourette's disorder; Z90.89 Acquired absence of other organs; Z80.49 Family history of malignant neoplasm of other genital organs; Z88.6 Allergy status to analgesic agent; Z79.51 Long term (current) use of inhaled steroids; Z23 Encounter for immunization
CPT/HCPCS: 36415; 71010; 71020; 71275; 72040; 80048; 81001; 82140; 84484; 85007; 85025; 86140; 87040; 90686; 93005; 93010; 94640; 94760; 96374; 96375; J0456; J0696; J1170; J1650; J2060; J2270; J2405; J2543; J2930; J3370; J7030; J7040; J7050; J7512; Q0169; Q9967

== ENCOUNTER 2018-03-02 21:49 | Emergency (ER) | payer SELFPAY ==
[2018-03-02 22:55] LABS: BUN/Creatinine Ratio 14; Blood Urea Nitrogen 11 mg/dL (9-20); Calcium 9.3 mg/dL (8.4-10.2); Hemolysis Index 3
[2018-03-02 22:58] LABS: Basophils # (Auto) 0.1 K/mm3 (0.0-0.1); Basophils % (Auto) 0.7 % (0.0-1.8); Eosinophils # (Auto) 0.4 K/mm3 (0.0-0.4); Eosinophils % (Auto) 3.9 % (0.0-4.3); Hematocrit 45.4 % (35.5-45.6); Hemoglobin 15.3 gm/dl (11.8-15.2); Lymphocytes # (Auto) 2.1 K/mm3 (1.2-5.4); Lymphocytes % (Auto) 22.3 % (13.4-35.0); Mean Corpuscular HGB Conc 34 % (32-34); Mean Corpuscular Hemoglobin 31 pg (28-32); Mean Corpuscular Volume 92 fl (84-94); Monocytes # (Auto) 0.9 K/mm3 (0.0-0.8); Platelet Count 234 K/mm3 (140-440); Red Blood Count 4.96 M/mm3 (3.65-5.03); Red Cell Distribution Width 13.5 % (13.2-15.2)
--- NOTE | 2018-03-02 23:03 | XRay Report ---
FINAL REPORT EXAM: XR CHEST ROUTINE 2V HISTORY: Shortness of breath TECHNIQUE: Two views of the chest Comparison: 07/09/2017 FINDINGS: Heart: Normal. Mediastinum/Vessels: There are surgical clips in the right mediastinal and hilar regions. Lungs/Pleural space: There is a moderate-sized right pleural effusion versus scar. There is resolution of the left posterior costophrenic sulcus. There is scarring and surgical clips at the right lung base. Upper lungs are well aerated and mildly emphysematous. Bony thorax: The left anterior 4th rib appears to be sclerotic. IMPRESSION: Right lung postsurgical changes. There is moderate-sized right pleural effusion. The trace left pleural effusion has resolved. Underlying pulmonary emphysema or hyperexpansion. Possibly sclerotic left anterior 4th rib versus artifact. Rib detail films/nuclear medicine bone scan could be performed.
[2018-03-03] MEDS ORDERED: NORCO 5/325 ONE (00:07)
[2018-03-03] MEDS ORDERED: DUONEB *Not for PRN Use IH ONE (00:08)
[2018-03-03] MEDS ORDERED: NORCO 5/325 PO ONE (00:08)
[2018-03-03 00:16] VITALS: BP 139/93
--- NOTE | 2018-03-03 01:14 | Emergency Department Report ---
HPI - General Chief Complaint: Dyspnea/Respdistress Time Seen by Provider: 03/03/18 00:37 - HPI HPI: Room 7 The patient is a 47-year-old male presenting with a chief complaint of pleuritic back pain. The patient states 3 days ago he developed a constant sharp pleuritic slightly right-sided back pain. Patient denies fever or cough. Patient denies any other forms of pain. The patient states he's had brief episodes of this pain intermittently over the past 3.5 years ever since he had his right lower lobectomy secondary to necrotizing pneumonia. The patient states he 15 minutes worth of pain here and there but normally resolved. The patient states over the past 3 days his pain as being constant and this is different for him. The patient states his pro-air inhaler usually helps but he ran out recently. The patient also mentions an episode approximately 2 weeks ago while he was in a hot he had a syncopal episode according to his . The patient states he did not seek medical attention. Location: [See above] Duration: 3 days Quality: Sharp Severity: 01/10 Modifying factors: [see above] Context: [see above] Mode of transportation: [not driving] ED Past Medical Hx - Past Medical History Hx GERD: Yes Hx Psychiatric Treatment: Yes (TOURETTE SYNDROME) Hx Asthma: Yes Additional medical history: necrotizing pneumonia- september 2013 - Surgical History Additional Surgical History: Left testicle removed @ age 16, Bakari in left leg @ age 26, R lower lobectomy, right rib removal - Family History Family history: no significant - Social History Smoking Status: Former Smoker (none for over 10 years) Substance Use Type: None (denies illicit drug use) - Medications Home Medications: Home Medications Medication Instructions Recorded Confirmed Last Taken Type HYDROcodone/APAP 10-325 [[place] 1 each PO Q8HR PRN #12 tablet 07/13/17 Unknown Rx 10-325 mg TAB] Levofloxacin [Levaquin TAB] 500 mg PO QDAY #7 tablet 07/13/17 Unknown Rx guaiFENesin DM [Guaifenesin Dm 10 ml PO Q4H PRN #240 ml 07/13/17 Unknown Rx Syrup] ALBUTEROL Inhaler [ProAir HFA 2 puff IH QID PRN #1 inha 03/03/18 Unknown Rx Inhaler] ALBUTEROL NEB's [Proventil 0.083% 2.5 mg IH TID PRN #1 neb 03/03/18 Unknown Rx NEBS] ED Review of Systems ROS: Stated complaint: SOB Other details as noted in HPI Constitutional: denies: fever Eyes: denies: eye pain ENT: denies: throat pain Respiratory: cough, other (pleurisy) Cardiovascular: denies: chest pain Endocrine: no symptoms reported Gastrointestinal: denies: abdominal pain Genitourinary: denies: dysuria Musculoskeletal: back pain Neurological: denies: headache Physical Exam - Physical Exam Vital Signs: Vital Signs 03/02/18 03/02/18 03/03/18 21:49 22:56 00:14 Temperature 98.8 F 97.8 F Pulse Rate 108 H 87 Pulse Rate [ Anterior Bilateral Throughout] Respiratory 20 16 16 Rate Respiratory Rate [Anterior Bilateral Throughout] Blood Pressure 150/107 Blood Pressure 132/90 [Left] O2 Sat by Pulse 94 96 Oximetry 03/03/18 03/03/18 00:15 00:23 Temperature Pulse Rate 84 Pulse Rate [ 79 Anterior Bilateral Throughout] Respiratory 16 Rate Respiratory 20 Rate [Anterior Bilateral Throughout] Blood Pressure Blood Pressure 139/93 [Left] O2 Sat by Pulse 96 Oximetry Physical Exam: GENERAL: The patient is well-developed well-nourished male lying on stretcher not appearing to be in acute distress. [] HEENT: Normocephalic. Atraumatic. Extraocular motions are intact. Patient has moist mucous membranes. NECK: Supple. Trachea midline CHEST/LUNGS: Clear to auscultation. There is no respiratory distress noted. HEART/CARDIOVASCULAR: Regular. There is no tachycardia. There is no gallop rub or murmur. ABDOMEN: Abdomen is soft, nontender. Patient has normal bowel sounds. There is no abdominal distention. SKIN: There is no rash. There is no edema. There is no diaphoresis. NEURO: The patient is awake, alert, and oriented. The patient is cooperative. The patient has normal speech MUSCULOSKELETAL: There is no evidence of acute injury. ED Course Vital Signs 03/02/18 03/02/18 03/03/18 21:49 22:56 00:14 Temperature 98.8 F 97.8 F Pulse Rate 108 H 87 Pulse Rate [ Anterior Bilateral Throughout] Respiratory 20 16 16 Rate Respiratory Rate [Anterior Bilateral Throughout] Blood Pressure 150/107 Blood Pressure 132/90 [Left] O2 Sat by Pulse 94 96 Oximetry 03/03/18 03/03/18 00:15 00:23 Temperature Pulse Rate 84 Pulse Rate [ 79 Anterior Bilateral Throughout] Respiratory 16 Rate Respiratory 20 Rate [Anterior Bilateral Throughout] Blood Pressure Blood Pressure 139/93 [Left] O2 Sat by Pulse 96 Oximetry ED Medical Decision Making - Lab Data Result diagrams: 03/02/18 22:12 03/02/18 22:12 Laboratory Tests 03/02/18 03/02/18 22:12 22:12 WBC 9.4 RBC 4.96 Hgb 15.3 H Hct 45.4 MCV 92 MCH 31 MCHC 34 RDW 13.5 Plt Count 234 Lymph % (Auto) 22.3 [place] % (Auto) 10.0 H Eos % (Auto) 3.9 Baso % (Auto) 0.7 Lymph # 2.1 [place] # 0.9 H Eos # 0.4 Baso # 0.1 Seg Neutrophils % 63.1 Seg Neutrophils # 5.9 Sodium 139 Potassium 3.8 Chloride 99.2 Carbon Dioxide 26 Anion Gap 18 BUN 11 Creatinine 0.8 Estimated GFR > 60 BUN/Creatinine Ratio 14 Glucose 132 H Calcium 9.3 - EKG Data -: EKG Interpreted by Me EKG shows normal: sinus rhythm Rate: normal - EKG Data When compared to previous EKG there are: no significant change Interpretation: unchanged when compared t (07/09/2017) - Radiology Data Radiology results: image reviewed (chest x-ray) interpreted by me: Chest [id number] right costophrenic angle/postsurgical changes. No significant change when compared to previous chest x-ray dated July 2017 [facility] [address] [place] [address] XRay Report Signed Patient: BASILIO DOMINGO JR MR#: [id number] : 1970 Acct:[id number] Age/Sex: 47 / M ADM Date: 03/02/18 Loc: ED Attending Dr: Ordering Physician: CAMERON ALY MD Date of Service: 03/02/18 Procedure(s): XR chest routine 2V Accession Number(s): [id number] cc: ED MD SHEEBA Fluoro Time In Minutes: FINAL REPORT EXAM: XR CHEST ROUTINE 2V HISTORY: Shortness of breath TECHNIQUE: Two views of the chest Comparison: 07/09/2017 FINDINGS: Heart: Normal. Mediastinum/Vessels: There are surgical clips in the right mediastinal and hilar regions. Lungs/Pleural space: There is a moderate-sized right pleural effusion versus scar. There is resolution of the left posterior costophrenic sulcus. There is scarring and surgical clips at the right lung base. Upper lungs are well aerated and mildly emphysematous. Bony thorax: The left anterior 4th rib appears to be sclerotic. IMPRESSION: Right lung postsurgical changes. There is moderate-sized right pleural effusion. The trace left pleural effusion has resolved. Underlying pulmonary emphysema or hyperexpansion. Possibly sclerotic left anterior 4th rib versus artifact. Rib detail films/nuclear medicine bone scan could be performed. Transcribed By: MP Dictated By: BENNY VENTURA Electronically Authenticated By: BENNY VENTURA Signed Date/Time: 03/02/182254 DD/ 54 TD/TT: 03/02/182254 - Medical Decision Making I discussed with the patient at length my concern for his history of syncope 2 weeks ago and now his pleuritic back pain for the past 3 days. I expressed my concern/desire to rule out PE. I explained that if he leaves the hospital AGAINST MEDICAL ADVICE without full evaluation with a CT angiogram of the chest and/or d-dimer they may suffer from increased morbidity and/or mortality. Patient verbalized understanding and states he wants to come back with his for further evaluation but desires to go home now - Differential Diagnosis PE, pleurisy, pneumothorax, pneumonia Critical care attestation.: If time is entered above; I have spent that time in minutes in the direct care of this critically ill patient, excluding procedure time. ED Disposition Clinical Impression: Pleuritic pain Disposition: - LEFT AGAINST MED ADVICE Is pt being admited?: No Does the pt Need Aspirin: No Condition: Undetermined Instructions: Chest Pain (ED) Additional Instructions: Return to the emergency department immediately should you develop worsening symptoms, fever, inability to tolerate food or liquid or any other concerns. Prescriptions: ALBUTEROL Inhaler [ProAir HFA Inhaler] 2 puff IH QID PRN #1 inha PRN Reason: Shortness Of Breath ALBUTEROL NEB's [Proventil 0.083% NEBS] 2.5 mg IH TID PRN #1 neb PRN Reason: Wheezing Referrals: PRIMARY CARE,MD [Primary Care Provider] - 3-5 Days TREASURE LYMAN MD [Staff Physician] - [facility] (Dr. Lyman is a heavy equipment engine mechanic. Please follow up for further evaluation) Time of Disposition: 00:56 (patient leaving AMA)
== END 2018-03-03 01:04 | disposition left against medical advice (07) ==
LOC: ED 21:49
DX: R07.81 Pleurodynia (principal); K21.9 Gastro-esophageal reflux disease without esophagitis; J45.909 Unspecified asthma, uncomplicated; J85.0 Gangrene and necrosis of lung; F95.2 Tourette's disorder; Z87.891 Personal history of nicotine dependence
CPT/HCPCS: 36415; 71046; 80048; 85025; 93005; 93010

== ENCOUNTER 2018-03-27 06:17 | Inpatient (IN) | payer OTHER ==
[2018-03-27 07:48] LABS: Basophils # (Auto) 0.1 K/mm3 (0.0-0.1); Basophils % (Auto) 0.9 % (0.0-1.8); Eosinophils # (Auto) 0.7 K/mm3 (0.0-0.4); Eosinophils % (Auto) 5.8 % (0.0-4.3); Hematocrit 44.8 % (35.5-45.6); Hemoglobin 15.5 gm/dl (11.8-15.2); Lymphocytes # (Auto) 1.9 K/mm3 (1.2-5.4); Lymphocytes % (Auto) 15.7 % (13.4-35.0); Mean Corpuscular HGB Conc 35 % (32-34); Mean Corpuscular Hemoglobin 31 pg (28-32); Mean Corpuscular Volume 91 fl (84-94); Monocytes # (Auto) 1.3 K/mm3 (0.0-0.8); Monocytes % (Auto) 10.6 % (0.0-7.3); Platelet Count 246 K/mm3 (140-440); Red Blood Count 4.94 M/mm3 (3.65-5.03); Red Cell Distribution Width 13.6 % (13.2-15.2)
[2018-03-27 08:08] LABS: BUN/Creatinine Ratio 11; Blood Urea Nitrogen 9 mg/dL (9-20); Calcium 9.3 mg/dL (8.4-10.2); Hemolysis Index 10
[2018-03-27] MEDS ORDERED: NACL 0.9% 1000 ML 1,000 ML IV ONE (08:22)
[2018-03-27 08:35] LABS: Creatine Kinase MB 3.2 ng/mL (0.0-4.0)
[2018-03-27 08:37] LABS: Alanine Aminotransferase 29 units/L (7-56); Albumin 4.3 g/dL (3.9-5)
[2018-03-27 08:46] LABS: Bilirubin,Direct < 0.2 mg/dL (0-0.2)
--- NOTE | 2018-03-27 09:15 | XRay Report ---
FINAL REPORT EXAM: XR CHEST ROUTINE 2V HISTORY: SHIMA TECHNIQUE: Frontal and lateral views of the chest. PRIORS: Chest x-ray March 02, 2018. FINDINGS: Cardiac silhouette is within normal limits. Aortic calcifications. Surgical clips in the right hilar region and right hemithorax are unchanged. Linear densities at the right lung base which may represent scarring is stable. Pleural thickening and small right pleural effusion is unchanged. Slight volume loss the right lung with right mediastinal shift is stable. No pneumothorax. No large consolidation. Postsurgical changes to the right ribs are stable. Hyperinflated left lung is stable without pneumothorax, consolidation, or effusion. There are no suspicious osseous lesions. Degenerative changes in the spine. IMPRESSION: Stable postsurgical changes to the right lung and hemithorax. Stable compensatory hyperinflated left lung. Otherwise, no acute cardiopulmonary findings.
--- NOTE | 2018-03-27 09:16 | Cat Scan Report ---
FINAL REPORT EXAM: CT HEAD/BRAIN WO CON HISTORY: fall syncope TECHNIQUE: CT of the Head without IV contrast. PRIORS: CT head September 11, 2016. FINDINGS: Stable small colloid plexus calcification or colloid cyst at the foramen of [place]. No hydrocephalus. There is no evidence for acute ischemia. There is no hemorrhage. There is no midline shift. There is no hydrocephalus. There is no mass. Age appropriate diehl-white matter attenuation is noted. There is no calvarial fracture. The temporal bones demonstrate aerated mastoid air cells. The middle ears appear unremarkable. Paranasal sinuses are unremarkable. Globes are intact. IMPRESSION: No acute intracranial findings.
--- NOTE | 2018-03-27 09:20 | XRay Report ---
FINAL REPORT EXAM: XR FOREARM RT HISTORY: fall injury TECHNIQUE: Two views right radius and ulna. PRIORS: None currently available. FINDINGS: There is no acute fracture. There is no evidence for healing fracture. There is no acute dislocation. There is no cortical destruction to suggest osteomyelitis. There are no suspicious osseous lesions. There are no radiopaque foreign objects. IMPRESSION: No acute osseous findings.
[2018-03-27] MEDS ORDERED: ULTRAM PO ONE (09:33)
[2018-03-27] MEDS ORDERED: ULTRAM ONE (09:34)
[2018-03-27] MEDS ORDERED: PROVENTIL IH PRN (10:06)
[2018-03-27] MEDS ORDERED: TYLENOL PO PRN (10:06)
[2018-03-27] MEDS ORDERED: SODIUM CHLORIDE FLUSH SYRINGE 10 ML IV PRN (10:06)
--- NOTE | 2018-03-27 10:11 | History and Physical Report ---
History of Present Illness Date of examination: 03/27/18 Date of admission: 03/27/18 Chief complaint: Shortness of breath, or syncope History of present illness: Patient's a 47-year-old male with past medical history of,GERD, [place]ham, Tourette 's Syndrome, Necrotizing Pneumonia S/P Lobectomy presents to ED for evaluation. chronic right-sided pain chronically on pain medication up until November of last year. The patient also had an lobectomy secondary to necrotizing pneumonia in 2013. Presents to the hospital today following multiple syncopal episode which he states is secondary to severe right-sided chest pain and persistent cough then leads to passing out. Although his EMR shows history of substance abuse and bipolar disorder the patient denies this. On presentation to the ER he was placed on oxygen and where recommended for admission for possible drug overdose with possible suicidal ideation. The patient denies any homicidal ideation to me at this time. He reports that the pain on his right side of his chest as a 5-10 intensity at this time will sometimes goes up to 10 over 10 intensity that is associated. He denies any other chest pain. He denies follow-up with primary care physicians due to insurance costs. He denies any productive cough. He reports that his symptoms has been worse recently problem to him to have very poor quality of life and easily fatigued. Past History Past Medical History: other (necrotizing pneumonia, chronic pain syndrome) Past Surgical History: Other (right-sided lobectomy) Social history: lives with family, other (chews tobacco) Family history: no significant family history Medications and Allergies Allergies Allergy/AdvReac Type Severity Reaction Status Date / Time ketorolac tromethamine Allergy Vomiting Verified 05/27/14 15:42 [From Toradol] tramadol AdvReac Unknown Verified 05/27/14 15:42 Home Medications Medication Instructions Recorded Confirmed Last Taken Type HYDROcodone/APAP 10-325 [[place] 1 each PO Q8HR PRN #12 tablet 07/13/17 03/27/18 03/26/18 Rx 10-325 mg TAB] guaiFENesin DM [Guaifenesin Dm 10 ml PO Q4H PRN #240 ml 07/13/17 03/27/18 Rx Syrup] levoFLOXacin [Levaquin TAB] 500 mg PO QDAY #7 tablet 07/13/17 03/27/18 03/26/18 Rx ALBUTEROL Inhaler [ProAir HFA 2 puff IH QID PRN #1 inha 03/03/18 03/27/18 Rx Inhaler] ALBUTEROL NEB's [Proventil 0.083% 2.5 mg IH TID PRN #1 neb 03/03/18 03/27/18 Rx NEBS] Review of Systems Constitutional: fatigue, weakness Respiratory: cough (frequent), shortness of breath, dyspnea on exertion Musculoskeletal: muscle cramps Neurological: syncope Exam - Physical Exam Narrative exam: VITAL SIGNS: Reviewed. GENERAL: The patient appeared well nourished and normally developed, chronically ill appearing. Vital signs as documented. HEAD: No signs of head trauma. EYES: Pupils are equal. Extraocular motions intact. EARS: Hearing grossly intact. MOUTH: Oropharynx is normal. NECK: No adenopathy, no JVD. CHEST: Chest with clear breath sounds bilaterally. No wheezes, rales, or rhonchi. CARDIAC: Regular rate and rhythm. S1 and S2, without murmurs, gallops, or rubs. VASCULAR: No Edema. Peripheral pulses normal and equal in all extremities. ABDOMEN: Soft, without detectable tenderness. No sign of distention. No rebound or guarding, and no masses palpated. Bowel Sounds normal. MUSCULOSKELETAL: Good range of motion of all major joints. Extremities without clubbing, cyanosis or edema. NEUROLOGIC EXAM: Alert and oriented x 3. No focal sensory or strength deficits. Speech normal. Follows commands. PSYCHIATRIC: Mood normal. SKIN: Surgical scar right chest wall, complaints of hypersensitivity to A chest - Constitutional Vitals: Temp Pulse Resp BP Pulse Ox 98.1 F 115 H 22 145/100 95 03/27/18 06:28 03/27/18 06:28 03/27/18 06:28 03/27/18 06:28 03/27/18 06:28 Results - Labs CBC & Chem 7: 03/27/18 07:23 03/27/18 07:23 Labs: Laboratory Last Values WBC 11.9 K/mm3 (4.5-11.0) H 03/27/18 07:23 RBC 4.94 M/mm3 (3.65-5.03) 03/27/18 07:23 Hgb 15.5 gm/dl (11.8-15.2) H 03/27/18 07:23 Hct 44.8 % (35.5-45.6) 03/27/18 07:23 MCV 91 fl (84-94) 03/27/18 07:23 MCH 31 pg (28-32) 03/27/18 07:23 MCHC 35 % (32-34) H 03/27/18 07:23 RDW 13.6 % (13.2-15.2) 03/27/18 07:23 Plt Count 246 K/mm3 (140-440) 03/27/18 07:23 Lymph % (Auto) 15.7 % (13.4-35.0) 03/27/18 07:23 [place] % (Auto) 10.6 % (0.0-7.3) H 03/27/18 07:23 Eos % (Auto) 5.8 % (0.0-4.3) H 03/27/18 07:23 Baso % (Auto) 0.9 % (0.0-1.8) 03/27/18 07:23 Lymph # 1.9 K/mm3 (1.2-5.4) 03/27/18 07:23 [place] # 1.3 K/mm3 (0.0-0.8) H 03/27/18 07:23 Eos # 0.7 K/mm3 (0.0-0.4) H 03/27/18 07:23 Baso # 0.1 K/mm3 (0.0-0.1) 03/27/18 07:23 Seg Neutrophils % 67.0 % (40.0-70.0) 03/27/18 07:23 Seg Neutrophils # 8.0 K/mm3 (1.8-7.7) H 03/27/18 07:23 Sodium 137 mmol/L (137-145) 03/27/18 07:23 Potassium 4.4 mmol/L (3.6-5.0) 03/27/18 07:23 Chloride 97.5 mmol/L (98-107) L 03/27/18 07:23 Carbon Dioxide 23 mmol/L (22-30) 03/27/18 07:23 Anion Gap 21 mmol/L 03/27/18 07:23 BUN 9 mg/dL (9-20) 03/27/18 07:23 Creatinine 0.8 mg/dL (0.8-1.5) 03/27/18 07:23 Estimated GFR > 60 ml/min 03/27/18 07:23 BUN/Creatinine Ratio 11 % 03/27/18 07:23 Glucose 94 mg/dL (75-100) 03/27/18 07:23 Lactic Acid 1.70 mmol/L (0.7-2.0) 03/27/18 09:18 Calcium 9.3 mg/dL (8.4-10.2) 03/27/18 07:23 Total Bilirubin 0.50 mg/dL (0.1-1.2) 03/27/18 07:54 Direct Bilirubin < 0.2 mg/dL (0-0.2) 03/27/18 07:54 Indirect Bilirubin 0.3 mg/dL 03/27/18 07:54 AST 26 units/L (5-40) 03/27/18 07:54 ALT 29 units/L (7-56) 03/27/18 07:54 Alkaline Phosphatase 131 units/L (35-129) H 03/27/18 07:54 Total Creatine Kinase 138 units/L (55-170) 03/27/18 07:54 CK-MB (CK-2) 3.2 ng/mL (0.0-4.0) 03/27/18 07:54 CK-MB (CK-2) Rel Index 2.3 (0-4) 03/27/18 07:54 NT-Pro-B Natriuret Pep 51.16 pg/mL (0-450) 03/27/18 07:23 Total Protein 7.4 g/dL (6.3-8.2) 03/27/18 07:54 Albumin 4.3 g/dL (3.9-5) 03/27/18 07:54 Albumin/Globulin Ratio 1.4 % 03/27/18 07:54 Salicylates 0.6 mg/dL (2.8-20.0) L 03/27/18 07:23 Acetaminophen < 5.0 ug/mL (10.0-30.0) L 03/27/18 07:23 Plasma/Serum Alcohol < 0.01 % (0-0.07) 03/27/18 07:23 Assessment and Plan Assessment and plan: Patient's a 47-year-old male with past medical history of,GERD, [place]ham, Tourette 's Syndrome, Necrotizing Pneumonia S/P Lobectomy presents to ED for evaluation. chronic right-sided pain chronically on pain medication up until November of last year. The patient also had an lobectomy secondary to necrotizing pneumonia in 2013. Presents to the hospital today following multiple syncopal episode which he states is secondary to severe right-sided chest pain and persistent cough then leads to passing out. Although his EMR shows history of substance abuse and bipolar disorder the patient denies this. On presentation to the ER he was placed on oxygen and where recommended for admission for possible drug overdose with possible suicidal ideation. The patient denies any homicidal ideation to me at this time. He reports that the pain on his right side of his chest as a 5-10 intensity at this time will sometimes goes up to 10 over 10 intensity that is associated. He denies any other chest pain. He denies follow-up with primary care physicians due to insurance costs. He denies any productive cough. He reports that his symptoms has been worse recently problem to him to have very poor quality of life and easily fatigued. On review of the ER physician the patient was actually brought to the hospital by EMS. After this possibly overdosing on her friend's Xanax. The patient at this point appears to be having Guardian history as his history keeps changing him out of the ER physician he is no longer suicidal and never mentioned that he was suicidal. This point, show what to believe up preadmission drug screen is positive for benzodiazepines and amphetamine. Atypical right side. Flank pain Acute infection and dyspnea Asthma GERD Status post lobectomy Tourette's Syndrome, Chronic pain syndrome [place] dependance Plan We'll admit patient to the hospital. Obtain pulmonary evaluation to rule out any evidence of pulmonary fibrosis and pulmonary hypertension, obtain echocardiogram Pain control while in-house he understands that I will not be prescribing any opioids and discharge Patient needs to have a primary care physician We'll obtain mental health consultation Counselling on Pain medications and also tobacco cessation 25 mins spent. DVT AND GI PROPHY Advance Directives: Yes Plan of care discussed with patient/family: Yes
[2018-03-27 10:16] LABS: INR 0.99 (0.87-1.13); Partial Thromboplastin Time 32.6 Sec. (24.2-36.6)
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
[2018-03-27 11:43] LABS: Bilirubin,Urine NEG (Negative); Blood,Urine NEG (Negative); Color,Urine Straw (Yellow); Mucus,Urine FEW /HPF; Protein,Urine <15 mg/dL mg/dL (Negative); Urobilinogen,Urine < 2.0 mg/dL (<2.0)
[2018-03-27] MEDS ORDERED: ASPIRIN PO ONE (11:52)
[2018-03-27 12:10] LABS: Cannabinoid Screen,Urine PRESUMPTIVE NEGATIVE; Cocaine Screen,Urine PRESUMPTIVE NEGATIVE; Methadone Screen,Urine PRESUMPTIVE NEGATIVE; Opiate Screen,Urine PRESUMPTIVE NEGATIVE
[2018-03-27 12:22] LABS: Amphetamine Screen,Urine PRESUMPTIVE POSITIVE; Benzodiazepines Screen,Urine PRESUMPTIVE POSITIVE
[2018-03-27] MEDS: MORPHINE IV PRN ×2 (12:30→18:30)
[2018-03-27] MEDS: DUONEB *Not for PRN Use IH SCH ×2 (13:13→19:31)
--- NOTE | 2018-03-27 13:43 | Consultation ---
History of Present Illness Consult date: 03/27/18 Reason for consult: other (chest pain and syncope, drug overdose) History of present illness: Called to evaluate case of a 47-year-old old male, admitted to the hospital complaining what appears to be a chronic right side chest pain and complains of "passing out because of low oxygen". The patient presents with a very vague history of persistent near continuous right-sided chest pain and hyperesthesia. He claims this has worsened lately, but chart review shows similar complaints since 2013. He has prior history of right necrotizing pneumonia that required lobectomy in 2013 and according to the EMR polysubstance abuse. He also complains of being unable to do anything at home, reportedly very limited exercise because of shortness of breath. This appears to be a chronic finding, noted for the past year. In the past month, he complains of passing out 3 times on exertion. Of note, no precordial pain reported or cold diaphoresis. No wheezing or coughing. No history of hemoptysis. He denies prior history of pulmonary embolism or DVT. Claims not to be smoking. He has seen Dr. Ott on his prior admissions on 2013 (see record notes by Dr. Ott) ,but does not report to be following with any life enrichment assistant. When I asked if he is following with any pain clinic in the past , he says "no". Toxicology panel was reactive for amphetamines and benzodiazepines Past History Past Medical History: other Past Surgical History: Other Medications and Allergies Allergies Allergy/AdvReac Type Severity Reaction Status Date / Time ketorolac tromethamine Allergy Vomiting Verified 05/27/14 15:42 [From Toradol] tramadol AdvReac Unknown Verified 05/27/14 15:42 Home Medications Medication Instructions Recorded Confirmed Last Taken Type HYDROcodone/APAP 10-325 [[place] 1 each PO Q8HR PRN #12 tablet 07/13/17 03/27/18 03/26/18 Rx 10-325 mg TAB] guaiFENesin DM [Guaifenesin Dm 10 ml PO Q4H PRN #240 ml 07/13/17 03/27/18 Rx Syrup] levoFLOXacin [Levaquin TAB] 500 mg PO QDAY #7 tablet 07/13/17 03/27/18 03/26/18 Rx ALBUTEROL Inhaler [ProAir HFA 2 puff IH QID PRN #1 inha 03/03/18 03/27/18 Rx Inhaler] ALBUTEROL NEB's [Proventil 0.083% 2.5 mg IH TID PRN #1 neb 03/03/18 03/27/18 Rx NEBS] Active Meds: Active Medications Acetaminophen (Tylenol) 650 mg PO Q4H PRN PRN Reason: Pain MILD(1-3)/Fever >100.5/BURRELL Albuterol (Proventil) 2.5 mg IH Q4HRT PRN PRN Reason: Shortness Of Breath Albuterol/Ipratropium (Duoneb *Not For Prn Use*) 1 ampul IH Q6HRT ALIYA Last Admin: 03/27/18 13:13 Dose: 1 ampul Methylprednisolone Sodium Succinate (Solu-Medrol) 60 mg IV Q8HR ALIYA Morphine Sulfate (Morphine) 2 mg IV Q6H PRN PRN Reason: Pain, Moderate (4-6) Last Admin: 03/27/18 12:30 Dose: 2 mg Ondansetron HCl (Zofran) 4 mg IV Q8H PRN PRN Reason: Nausea And Vomiting Sodium Chloride (Sodium Chloride Flush Syringe 10 Ml) 10 ml IV BID ALIYA Sodium Chloride (Sodium Chloride Flush Syringe 10 Ml) 10 ml IV PRN PRN PRN Reason: LINE FLUSH Review of Systems Constitutional: no fever, no chills, no sweats, no night sweats Cardiovascular: chest pain, orthopnea, palpitations, rapid/irregular heart beat , edema, syncope, lightheadedness, shortness of breath, dyspnea on exertion Respiratory: shortness of breath, dyspnea on exertion, pleurisy, no wheezing Gastrointestinal: nausea, no melena, no hematochezia Neurological: no head injury, no transient paralysis, no paralysis, no weakness Psychiatric: anxiety, change in sleep habits, insomnia, change in appetite, anxiety attacks (reportedly with shortness of breath when he has chest pain) Hematologic/Lymphatic: no easy bruising, no easy bleeding, no thrombophilia Physical Examination Vital signs: Vital Signs Temp Pulse Resp BP Pulse Ox 98.1 F 115 H 22 145/100 95 03/27/18 06:28 03/27/18 06:28 03/27/18 06:28 03/27/18 06:28 03/27/18 06:28 General appearance: no acute distress, alert Eyes: non-icteric ENT: oropharynx moist Neck: supple, no JVD Effort: other (complaints of hypersensitivity right side of the chest) Ascultation: Bilateral: clear Cardiovascular: regular rate and rhythm, other (no murmur) Gastrointestinal: normoactive bowel sounds, non-distended Integumentary: normal Extremities: no cyanosis, no edema Musculoskeletal: no deformities normal mental status, non-focal exam mood appropriate, affect normal Results - Laboratory Findings CBC and BMP: 03/27/18 07:23 03/27/18 07:23 PT/INR, D-dimer PT 13.6 Sec. (12.2-14.9) 03/27/18 09:18 INR 0.99 (0.87-1.13) 03/27/18 09:18 D-Dimer < 135 ng/mlDDU (0-234) 03/27/18 09:18 Abnormal lab findings: Abnormal Labs 03/27/18 03/27/18 03/27/18 07:23 07:23 07:23 WBC Hgb MCHC [place] % (Auto) Eos % (Auto) [place] # Eos # Seg Neutrophils # Chloride 97.5 L Alkaline Phosphatase Salicylates 0.6 L Acetaminophen < 5.0 L 03/27/18 03/27/18 07:23 07:54 WBC 11.9 H Hgb 15.5 H MCHC 35 H [place] % (Auto) 10.6 H Eos % (Auto) 5.8 H [place] # 1.3 H Eos # 0.7 H Seg Neutrophils # 8.0 H Chloride Alkaline Phosphatase 131 H Salicylates Acetaminophen - Diagnostic Findings Chest x-ray: report reviewed, image reviewed Assessment and Plan Chest pain with syncope. Etiology not clear. We'll need further evaluation but recently may not be pulmonary in origin. ? Pulmonic fibrosis. Review of the patient's chest x-ray essentially shows only postsurgical scar changes in the right lung History of chest pain consistent with neuropathic pain, postsurgical Past medical history of drug-seeking behavior. See record notes Anxiety/panic disorder. During the interview, the patient specifically reported that he did not try to intentionally overdosed with medication and specifically stated not to be suicidal during our conversation Recommendations Psychiatry evaluation for further review. I think is reasonable to do an echocardiogram in order to exclude significant pulmonary hypertension, as cause of the patient alleged syncope symptoms Also, ambulate patient on room air to evaluate for any significant exercise related hypoxemia If significant pulmonary hypertension seen on echocardiogram, I will proceed next with BNP level and ventilation perfusion scanning If electrocardiogram and oximetry are normal, will advise to monitor the patient clinically Can try gabapentin, for pain. However, patient may need to be follow-up pain clinic level for further treatment at this point Discussed with patient in detail. All questions answered.
[2018-03-27] MEDS: SOLU-Medrol IV SCH ×2 (15:54→21:59)
[2018-03-27] MEDS: ZOFRAN IV PRN (18:30)
--- NOTE | 2018-03-27 19:43 | Emergency Department Report ---
Blank Doc - Documentation Documentation: Brief emergency department note, 1930 hrs. Asked to evaluate patient for 1013 confinement, as previous physician examiner did not completely paperwork prior to making arrangements for admission. On my examination, patient is awake, alert, oriented, is adamant in his denial of any acute depression, any suicidal attempt, and reports that he simply took 4 alprazolam tablets provided by a friend, which was the only way that he was able to obtain medications for his chronic anxiety. He also has chronic pain disorder, but denies overdose on any other medication. He is being admitted for evaluation and treatment of sepsis, with history of necrotizing pneumonia, but on my examination, he is awake alert and oriented, gives a fairly clear and emphatic statement of his recent past history, admits to acute anxiety, which is worse now that he has not had any anxiety medication recently, but denies attempt at suicide. Mental health counselor was consult it, and after her examination, she also feels that patient is not expressing suicidal ideation, and not at significant risk for suicide. On my examination, patient is medically stable, vital signs are stable, he is awake and oriented, in no acute respiratory distress, and respirations are unlabored, although he has decreased breath sounds in his right lower lobe area , over the area of his prior partial pneumonectomy, but his other examination is benign. Patient is somewhat agitated emotionally, but some of this is his expressed agitation at being declared suicide risk, which he believes is against his sabianist, and is not exhibited by his recent behavior, and he does not believe that ingestion of alprazolam tablets was a significant concern or indication of suicide. Although patient's behavior is overtly inappropriate, he has a fairly cogent rationale for his method of obtaining medicines, as well as his means of controlling his chronic pain and chronic anxiety, and I believe that there is substantial doubt as to whether this truly represents suicidal intent. As such , and with the concurrent opinion of the mental health counselor, Jana, I am withholding 1013 confinement, the patient may proceed for admission for his additional other medical care.
[2018-03-27] MEDS ORDERED: ATIVAN IV ONE (21:28)
[2018-03-27] MEDS: SODIUM CHLORIDE FLUSH SYRINGE 10 ML IV SCH (22:00)
[2018-03-28] MEDS: DUONEB *Not for PRN Use IH SCH ×4 (01:21→20:07)
[2018-03-28] MEDS: PERCOCET 5/325 PO PRN ×3 (03:50→22:30)
[2018-03-28] MEDS: ZOFRAN IV PRN (04:05)
[2018-03-28] MEDS: MORPHINE IV PRN ×2 (04:46→11:42)
[2018-03-28] MEDS: SOLU-Medrol IV SCH ×3 (06:00→22:30)
[2018-03-28 08:07] LABS: Mean Corpuscular HGB Conc 34 % (32-34); Mean Corpuscular Hemoglobin 31 pg (28-32); Mean Corpuscular Volume 91 fl (84-94); Platelet Count 266 K/mm3 (140-440); Red Blood Count 4.84 M/mm3 (3.65-5.03); Red Cell Distribution Width 13.4 % (13.2-15.2)
[2018-03-28] MEDS: PROTONIX PO SCH ×2 (08:48→11:30)
[2018-03-28 09:09] LABS: BUN/Creatinine Ratio 19; Blood Urea Nitrogen 13 mg/dL (9-20); Calcium 9.8 mg/dL (8.4-10.2); Hemolysis Index 22
[2018-03-28] MEDS: SODIUM CHLORIDE FLUSH SYRINGE 10 ML IV SCH (11:41)
[2018-03-28] MEDS ORDERED: PNEUMOVAX 23 IM ONE (12:00)
[2018-03-28] MEDS ORDERED: KIONEX PO ONE ×2 (12:35→16:00)
--- NOTE | 2018-03-28 12:35 | Progress Note ---
Assessment and Plan Assessment and plan: Patient's a 47-year-old male with past medical history of,GERD, [place], Tourette 's Syndrome, Necrotizing Pneumonia S/P Lobectomy presents to ED for evaluation. chronic right-sided pain chronically on pain medication up until November of last year. The patient also had an lobectomy secondary to narcotizing pneumonia in 2013. Presents to the hospital today following multiple syncopal episode which he states is secondary to severe right-sided chest pain and persistent cough then leads to passing out. Although his EMR shows history of substance abuse and bipolar disorder the patient denies this. On presentation to the ER he was placed on oxygen and where recommended for admission for possible drug overdose with possible suicidal ideation. The patient denies any homicidal ideation to me at this time. He reports that the pain on his right side of his chest as a 5-10 intensity at this time will sometimes goes up to 10 over 10 intensity that is associated. He denies any other chest pain. He denies follow-up with primary care physicians due to insurance costs. He denies any productive cough. He reports that his symptoms has been worse recently problem to him to have very poor quality of life and easily fatigued. On review of the ER physician the patient was actually brought to the hospital by EMS. After this possibly overdosing on her friend's Xanax. The patient at this point appears to be having Guardian history as his history keeps changing him out of the ER physician he is no longer suicidal and never mentioned that he was suicidal. This point, show what to believe up preadmission drug screen is positive for benzodiazepines and amphetamine. Atypical right side. Flank pain Acute infection and dyspnea Asthma GERD Hperkalemia Status post lobectomy Tourette's Syndrome, Chronic pain syndrome Tobbacco dependance Plan Pulmonary evaluation to rule out any evidence of pulmonary fibrosis and pulmonary hypertension, Obtain echocardiogram. plan for PRANAY in am Pain control while in-house he understands that I will not be prescribing any opioids and discharge Patient needs to have a primary care physician Await mental health consultation Counselling on Pain medications and also tobacco cessation 25 min spent. DVT AND GI PROPHY History Interval history: Patient seen and examined, continues to report pleuritic chest pain, reproducible and limiting exertion. Pain is unchanged in months. Per patient was recommended to be on home o2 but could not afford it. Also was recommended to be on gabapentin but makes him "a zombi" per nursing staff he is requesting pain medicine round the clock. He again denies suicidal ideation. spouse in room Hospitalist Physical - Physical exam Narrative exam: VITAL SIGNS: Reviewed. GENERAL: The patient appeared well nourished and normally developed, chronically ill appearing. Vital signs as documented. HEAD: No signs of head trauma. EYES: Pupils are equal. Extraocular motions intact. EARS: Hearing grossly intact. MOUTH: Oropharynx is normal. NECK: No adenopathy, no JVD. CHEST: Chest with clear breath sounds bilaterally. No wheezes, rales, or rhonchi. CARDIAC: Regular rate and rhythm. S1 and S2, without murmurs, gallops, or rubs. VASCULAR: No Edema. Peripheral pulses normal and equal in all extremities. ABDOMEN: Soft, without detectable tenderness. No sign of distention. No rebound or guarding, and no masses palpated. Bowel Sounds normal. MUSCULOSKELETAL: Good range of motion of all major joints. Extremities without clubbing, cyanosis or edema. NEUROLOGIC EXAM: Alert and oriented x 3. No focal sensory or strength deficits. Speech normal. Follows commands. PSYCHIATRIC: Mood normal. SKIN: Surgical scar right chest wall, complaints of hypersensitivity to A chest - Constitutional Vitals: Temp Pulse Resp BP Pulse Ox 97.8 F 64 16 122/78 97 03/28/18 06:50 03/28/18 08:17 03/28/18 08:17 03/28/18 06:50 03/28/18 08:20 Results - Labs CBC & Chem 7: 03/28/18 07:42 03/28/18 07:42 Labs: Laboratory Last Values WBC 12.4 K/mm3 (4.5-11.0) H 03/28/18 07:42 RBC 4.84 M/mm3 (3.65-5.03) 03/28/18 07:42 Hgb 15.0 gm/dl (11.8-15.2) 03/28/18 07:42 Hct 44.0 % (35.5-45.6) 03/28/18 07:42 MCV 91 fl (84-94) 03/28/18 07:42 MCH 31 pg (28-32) 03/28/18 07:42 MCHC 34 % (32-34) 03/28/18 07:42 RDW 13.4 % (13.2-15.2) 03/28/18 07:42 Plt Count 266 K/mm3 (140-440) 03/28/18 07:42 Lymph % (Auto) 15.7 % (13.4-35.0) 03/27/18 07:23 [place] % (Auto) 10.6 % (0.0-7.3) H 03/27/18 07:23 Eos % (Auto) 5.8 % (0.0-4.3) H 03/27/18 07:23 Baso % (Auto) 0.9 % (0.0-1.8) 03/27/18 07:23 Lymph # 1.9 K/mm3 (1.2-5.4) 03/27/18 07:23 [place] # 1.3 K/mm3 (0.0-0.8) H 03/27/18 07:23 Eos # 0.7 K/mm3 (0.0-0.4) H 03/27/18 07:23 Baso # 0.1 K/mm3 (0.0-0.1) 03/27/18 07:23 Seg Neutrophils % Pie Maker 03/28/18 07:42 Seg Neutrophils # 8.0 K/mm3 (1.8-7.7) H 03/27/18 07:23 PT 13.6 Sec. (12.2-14.9) 03/27/18 09:18 INR 0.99 (0.87-1.13) 03/27/18 09:18 APTT 32.6 Sec. (24.2-36.6) 03/27/18 09:18 D-Dimer < 135 ng/mlDDU (0-234) 03/27/18 09:18 Sodium 136 mmol/L (137-145) L 03/28/18 07:42 Potassium 5.1 mmol/L (3.6-5.0) H 03/28/18 07:42 Chloride 96.3 mmol/L (98-107) L 03/28/18 07:42 Carbon Dioxide 21 mmol/L (22-30) L 03/28/18 07:42 Anion Gap 24 mmol/L 03/28/18 07:42 BUN 13 mg/dL (9-20) 03/28/18 07:42 Creatinine 0.7 mg/dL (0.8-1.5) L 03/28/18 07:42 Estimated GFR > 60 ml/min 03/28/18 07:42 BUN/Creatinine Ratio 19 % 03/28/18 07:42 Glucose 138 mg/dL (75-100) H 03/28/18 07:42 POC Glucose 150 (70-105) H 03/28/18 08:03 Lactic Acid 1.70 mmol/L (0.7-2.0) 03/27/18 09:18 Calcium 9.8 mg/dL (8.4-10.2) 03/28/18 07:42 Total Bilirubin 0.50 mg/dL (0.1-1.2) 03/27/18 07:54 Direct Bilirubin < 0.2 mg/dL (0-0.2) 03/27/18 07:54 Indirect Bilirubin 0.3 mg/dL 03/27/18 07:54 AST 26 units/L (5-40) 03/27/18 07:54 ALT 29 units/L (7-56) 03/27/18 07:54 Alkaline Phosphatase 131 units/L (35-129) H 03/27/18 07:54 Total Creatine Kinase 138 units/L (55-170) 03/27/18 07:54 CK-MB (CK-2) 3.2 ng/mL (0.0-4.0) 03/27/18 07:54 CK-MB (CK-2) Rel Index 2.3 (0-4) 03/27/18 07:54 NT-Pro-B Natriuret Pep 51.16 pg/mL (0-450) 03/27/18 07:23 Total Protein 7.4 g/dL (6.3-8.2) 03/27/18 07:54 Albumin 4.3 g/dL (3.9-5) 03/27/18 07:54 Albumin/Globulin Ratio 1.4 % 03/27/18 07:54 Urine Color Straw (Yellow) 03/27/18 11:20 Urine Turbidity Clear (Clear) 03/27/18 11:20 Urine pH 6.0 (5.0-7.0) 03/27/18 11:20 Ur Specific [place] 1.003 (1.003-1.030) 03/27/18 11:20 Urine Protein <15 mg/dl mg/dL (Negative) 03/27/18 11:20 Urine Glucose (UA) Neg mg/dL (Negative) 03/27/18 11:20 Urine Ketones Neg mg/dL (Negative) 03/27/18 11:20 Urine Blood Neg (Negative) 03/27/18 11:20 Urine Nitrite Neg (Negative) 03/27/18 11:20 Urine Bilirubin Neg (Negative) 03/27/18 11:20 Urine Urobilinogen < 2.0 mg/dL (<2.0) 03/27/18 11:20 Ur Leukocyte Esterase Neg (Negative) 03/27/18 11:20 Urine WBC (Auto) 0.0 /HPF (0.0-6.0) 03/27/18 11:20 Urine RBC (Auto) 1.0 /HPF (0.0-6.0) 03/27/18 11:20 Urine Mucus Few /HPF 03/27/18 11:20 Salicylates 0.6 mg/dL (2.8-20.0) L 03/27/18 07:23 Urine Opiates Screen Presumptive negative 03/27/18 11:20 Urine Methadone Screen Presumptive negative 03/27/18 11:20 Acetaminophen < 5.0 ug/mL (10.0-30.0) L 03/27/18 07:23 Ur Barbiturates Screen Presumptive negative 03/27/18 11:20 Ur Phencyclidine Scrn Presumptive negative 03/27/18 11:20 Ur Amphetamines Screen Presumptive positive 03/27/18 11:20 U Benzodiazepines Scrn Presumptive positive 03/27/18 11:20 Urine Cocaine Screen Presumptive negative 03/27/18 11:20 U Marijuana (THC) Screen Presumptive negative 03/27/18 11:20 Drugs of Abuse Note Disclamer 03/27/18 11:20 Plasma/Serum Alcohol < 0.01 % (0-0.07) 03/27/18 07:23
[2018-03-28 13:14] LABS: Basophils % (Manual) 0 % (0.0-1.8); Eosinophils % (Manual) 0 % (0.0-4.3); Monocytes % (Manual) 0 % (0.0-7.3); Total Cells Counted 100
[2018-03-28 13:17] LABS: Large Platelets Few; Platelet Estimate Cons; RBC Morphology Normal
--- NOTE | 2018-03-28 15:42 | Progress Note ---
Assessment and Plan Chest pain with syncope. Echocardiogram did not show changes consistent with pulmonary hypertension, although poor pulmonary window reported, no specific pressures. See report. ? Pulmonic fibrosis. Review of the patient's chest x-ray essentially shows only postsurgical scar changes in the right lung History of chest pain consistent with neuropathic pain, postsurgical Past medical history of drug-seeking behavior. See record notes. Asking for drugs of 4-6 hours once admitted, per nursing report. Anxiety/panic disorder. During the interview, the patient specifically reported that he did not try to intentionally overdosed with medication and specifically stated not to be suicidal during our conversation Recommendations Psychiatry evaluation for further review. Ambulate patient on room air to evaluate for any significant exercise related hypoxemia BNP level . Unclear if she will need a PRANAY, may need to discuss this with cardiology as per syncope evaluation If the above normal , will advise to monitor the patient clinically Strong narcotic, pain drug driven behavior noted Discussed with patient in detail. All questions answered. Subjective Date of service: 03/28/18 Principal diagnosis: overdose, syncope complain, chest pain Interval history: Medical plane to the morning his chest pain. Appears to be diffuse nonfocal and only mentions shortness of breath when asked. He was found on his room without oxygen on, breathing normally. Sitter present Objective Vital Signs - 12hr 03/28/18 03/28/18 03/28/18 06:50 08:10 08:17 Temperature 97.8 F Pulse Rate 81 Pulse Rate [ 64 64 Anterior Bilateral Throughout] Respiratory 20 Rate Respiratory 16 16 Rate [Anterior Bilateral Throughout] Blood Pressure 122/78 O2 Sat by Pulse 91 90 Oximetry 03/28/18 03/28/18 03/28/18 08:20 13:34 13:42 Temperature 97.3 F L Pulse Rate 89 Pulse Rate [ 79 Anterior Bilateral Throughout] Respiratory 16 Rate Respiratory 18 Rate [Anterior Bilateral Throughout] Blood Pressure 128/79 O2 Sat by Pulse 97 96 Oximetry 03/28/18 13:44 Temperature Pulse Rate Pulse Rate [ 98 H Anterior Bilateral Throughout] Respiratory Rate Respiratory 20 Rate [Anterior Bilateral Throughout] Blood Pressure O2 Sat by Pulse Oximetry Constitutional: no acute distress, alert Eyes: non-icteric ENT: oropharynx moist Neck: supple, no JVD Effort: other (no hyperesthesia during examination) Ascultation: Bilateral: clear Cardiovascular: regular rate and rhythm Gastrointestinal: normoactive bowel sounds, non-distended Integumentary: normal Extremities: no cyanosis, no edema Neurologic: normal mental status, non-focal exam Psychiatric: mood appropriate, affect normal CBC and BMP: 03/28/18 07:42 03/28/18 07:42 ABG, PT/INR, D-dimer: PT/INR, D-dimer PT 13.6 Sec. (12.2-14.9) 03/27/18 09:18 INR 0.99 (0.87-1.13) 03/27/18 09:18 D-Dimer < 135 ng/mlDDU (0-234) 03/27/18 09:18 Abnormal lab findings: Abnormal Labs 03/27/18 03/27/18 03/27/18 07:23 07:23 07:23 WBC Hgb MCHC [place] % (Auto) Eos % (Auto) [place] # Eos # Seg Neuts % (Manual) Lymphocytes % (Manual) Seg Neutrophils # Seg Neutrophils # Man Lymphocytes # (Manual) Sodium Potassium Chloride 97.5 L Carbon Dioxide Creatinine Glucose POC Glucose Alkaline Phosphatase Salicylates 0.6 L Acetaminophen < 5.0 L 03/27/18 03/27/18 03/28/18 07:23 07:54 07:42 WBC 11.9 H 12.4 H Hgb 15.5 H MCHC 35 H [place] % (Auto) 10.6 H Eos % (Auto) 5.8 H [place] # 1.3 H Eos # 0.7 H Seg Neuts % (Manual) 95.0 H Lymphocytes % (Manual) 5.0 L Seg Neutrophils # 8.0 H Seg Neutrophils # Man 11.8 H Lymphocytes # (Manual) 0.6 L Sodium Potassium Chloride Carbon Dioxide Creatinine Glucose POC Glucose Alkaline Phosphatase 131 H Salicylates Acetaminophen 03/28/18 03/28/18 07:42 08:03 WBC Hgb MCHC [place] % (Auto) Eos % (Auto) [place] # Eos # Seg Neuts % (Manual) Lymphocytes % (Manual) Seg Neutrophils # Seg Neutrophils # Man Lymphocytes # (Manual) Sodium 136 L Potassium 5.1 H Chloride 96.3 L Carbon Dioxide 21 L Creatinine 0.7 L Glucose 138 H POC Glucose 150 H Alkaline Phosphatase Salicylates Acetaminophen
--- NOTE | 2018-03-28 17:47 | Consultation ---
History of Present Illness - Reason for Consult Consult date: 03/28/18 Reason for consult: overdose on xanax - Chief Complaint Chief complaint: "I have anxiety." He states there was a moment in time he was having an episode of shortness of breath, in which he thought he was going to . His friend have given him xanax 1mg, 4 tabs, to help with anxiety. He took them all at once. He states his episodes of shortness of breath lead to panic attacks. He ran out of pain medications for "1-2 days" prior to this event. He cannot explain why amphetamine would be in his drug screen. He denies using illicit substances. He acknowledges anxiety, depression, short temper, and insomnia. He denies suicidal or homicidal ideation. He denies psychotic symptoms. He was previously diagnosed with bipolar disorder. He denies manic episodes. Medications and Allergies Allergies Allergy/AdvReac Type Severity Reaction Status Date / Time ketorolac tromethamine Allergy Vomiting Verified 05/27/14 15:42 [From Toradol] tramadol AdvReac Unknown Verified 05/27/14 15:42 Home Medications Medication Instructions Recorded Confirmed Last Taken Type HYDROcodone/APAP 10-325 [[place] 1 each PO Q8HR PRN #12 tablet 07/13/17 03/27/18 03/26/18 Rx 10-325 mg TAB] guaiFENesin DM [Guaifenesin Dm 10 ml PO Q4H PRN #240 ml 07/13/17 03/27/18 Rx Syrup] levoFLOXacin [Levaquin TAB] 500 mg PO QDAY #7 tablet 07/13/17 03/27/18 03/26/18 Rx ALBUTEROL Inhaler [ProAir HFA 2 puff IH QID PRN #1 inha 03/03/18 03/27/18 Rx Inhaler] ALBUTEROL NEB's [Proventil 0.083% 2.5 mg IH TID PRN #1 neb 03/03/18 03/27/18 Rx NEBS] Active Meds: Active Medications Acetaminophen (Tylenol) 650 mg PO Q4H PRN PRN Reason: Pain MILD(1-3)/Fever >100.5/BURRELL Albuterol (Proventil) 2.5 mg IH Q4HRT PRN PRN Reason: Shortness Of Breath Albuterol/Ipratropium (Duoneb *Not For Prn Use*) 1 ampul IH Q6HRT [facility] Last Admin: 03/28/18 13:34 Dose: 1 ampul Methylprednisolone Sodium Succinate (Solu-Medrol) 60 mg IV Q8HR [facility] Last Admin: 03/28/18 15:36 Dose: 60 mg Morphine Sulfate (Morphine) 2 mg IV Q6H PRN PRN Reason: Pain, Moderate (4-6) Last Admin: 03/28/18 11:42 Dose: 2 mg Ondansetron HCl (Zofran) 4 mg IV Q8H PRN PRN Reason: Nausea And Vomiting Last Admin: 03/28/18 04:05 Dose: 4 mg Oxycodone/Acetaminophen (Percocet 5/325) 2 tab PO Q6H PRN PRN Reason: Pain, Moderate (4-6) Last Admin: 03/28/18 15:40 Dose: 2 tab Pantoprazole Sodium (Protonix) 40 mg PO QDAY [facility] Last Admin: 03/28/18 11:30 Dose: Not Given Sodium Chloride (Sodium Chloride Flush Syringe 10 Ml) 10 ml IV BID [facility] Last Admin: 03/28/18 11:41 Dose: 10 ml Sodium Chloride (Sodium Chloride Flush Syringe 10 Ml) 10 ml IV PRN PRN PRN Reason: LINE FLUSH Past psychiatric history - Past Medical History Past Medical History: GERD, other (asthma) Past Surgical History: Other (right lower lobectomy) - past Psychiatric treatment and history psychiatric treatment history: He states Dr. Beth diagnosed him with tourette's and bipolar He states he never took the tegretol and lithium he prescribed He took depakote and says it gave him heartburn. He denies a history of suicide attempts - Social History Social history: lives with family Mental Status Exam - Vital signs Last Vital Signs Temp 97.3 F L 03/28/18 13:42 Pulse 98 H 03/28/18 13:44 Resp 20 03/28/18 13:44 BP 128/79 03/28/18 13:42 Pulse Ox 96 03/28/18 13:42 - Exam Orientation: time, place, person Affect: depressed, anxious Mood: congruent with affect Thought content: other (denies suicidal or homicidal ideation) Thought Process: Intact Perceptions: none Speech: normal rate and pattern Concentration: focused Motor activity: normal Level of consciousness: alert Memory: Intact Sleep Symptoms: Insomnia Interaction: cooperative Results Result Diagrams: 03/28/18 07:42 03/28/18 07:42 Abnormal lab results 03/28/18 03/28/18 03/28/18 Range/Units 07:42 07:42 08:03 WBC 12.4 H (4.5-11.0) K/mm3 Seg Neuts % (Manual) 95.0 H (40.0-70.0) % Lymphocytes % (Manual) 5.0 L (13.4-35.0) % Seg Neutrophils # Man 11.8 H (1.8-7.7) K/mm3 Lymphocytes # (Manual) 0.6 L (1.2-5.4) K/mm3 Sodium 136 L (137-145) mmol/L Potassium 5.1 H (3.6-5.0) mmol/L Chloride 96.3 L (98-107) mmol/L Carbon Dioxide 21 L (22-30) mmol/L Creatinine 0.7 L (0.8-1.5) mg/dL Glucose 138 H (75-100) mg/dL POC Glucose 150 H (70-105) All other labs normal. Assessment and Plan Assessment and plan: Impression: ingestion of xanax/non lethal overdose anxiety disorder, unspecified major depression, unspecified Intermittent steroid use may contribute to his anxiety/depression. r/o substance use disorder r/o bipolar disorder UDS positive for amphetamines and benzos. Recommendations: Monitor for benzodiazepine withdrawal. If his use is as stated, benzo withdrawal is not likely. Benzodiazepines are not recommended for him, for treatment of anxiety disorder Start vistaril 50mg bid prn anxiety-monitor for sedation We discussed an SSRI for anxiety and depression, but will hold off at this time. Outpatient counseling/psychiatry resources should be provided. Psych will follow up in 24 hours.
[2018-03-28] MEDS: VISTARIL PO PRN (22:30)
[2018-03-29] MEDS: MORPHINE IV PRN ×3 (00:30→14:06)
[2018-03-29] MEDS: SODIUM CHLORIDE FLUSH SYRINGE 10 ML IV SCH ×2 (01:18→10:35)
[2018-03-29] MEDS: DUONEB *Not for PRN Use IH SCH ×3 (03:12→13:07)
[2018-03-29] MEDS: PERCOCET 5/325 PO PRN ×2 (03:30→10:34)
[2018-03-29] MEDS: SOLU-Medrol IV SCH (06:34)
--- NOTE | 2018-03-29 09:51 | Progress Note ---
Assessment and Plan Assessment and plan: Patient's a 47-year-old male with past medical history of,GERD, Astham, Tourette 's Syndrome, Necrotizing Pneumonia S/P Lobectomy presents to ED for evaluation. chronic right-sided pain chronically on pain medication up until November of last year. The patient also had an lobectomy secondary to narcotizing pneumonia in 2013. Presents to the hospital today following multiple syncopal episode which he states is secondary to severe right-sided chest pain and persistent cough then leads to passing out. Although his EMR shows history of substance abuse and bipolar disorder the patient denies this. On presentation to the ER he was placed on oxygen and where recommended for admission for possible drug overdose with possible suicidal ideation. The patient denies any homicidal ideation to me at this time. He reports that the pain on his right side of his chest as a 5-10 intensity at this time will sometimes goes up to 10 over 10 intensity that is associated. He denies any other chest pain. He denies follow-up with primary care physicians due to insurance costs. He denies any productive cough. He reports that his symptoms has been worse recently problem to him to have very poor quality of life and easily fatigued. On review of the ER physician the patient was actually brought to the hospital by EMS. After this possibly overdosing on her friend's Xanax. The patient at this point appears to be having Guardian history as his history keeps changing him out of the ER physician he is no longer suicidal and never mentioned that he was suicidal. This point, show what to believe up preadmission drug screen is positive for benzodiazepines and amphetamine. Atypical right side chest pain Recurrent syncope Acute infection and dyspnea Asthma GERD Hyperkalemia Status post lobectomy Tourette's Syndrome, Chronic pain syndrome Tobbacco dependance ingestion of xanax/non lethal overdose anxiety disorder, unspecified, r/o substance use disorder.r/o bipolar disorder major depression, unspecified Plan Pulmonary evaluation to rule out any evidence of pulmonary fibrosis and pulmonary hypertension, Obtain echocardiogram. We'll obtain cardiology consultation due to recurrent syncope although patient states that this is mediated. Workup for this. As discussed with nursing staff will avoid benzos on this patient. Mental health input is noted. Doubt any Helpful effect from steroids,. will quickly wean off Pain control while in-house he understands that I will not be prescribing any opioids and discharge Patient needs to have a primary care physician Await mental health consultation Counselling on Pain medications and also tobacco cessation 25 min spent. Staff reports a saturation of 88% to 85% on room air ambulation. Patient will likely need oxygen on discharge he is on the shoulder will obtain case management consultation for assistance. DVT AND GI PROPHY Anticipated discharge post cardiology input Hospitalist Physical - Constitutional Vitals: Temp Pulse Resp BP Pulse Ox 98.3 F 109 H 20 121/72 95 03/28/18 22:42 03/28/18 22:42 03/28/18 22:42 03/28/18 22:42 03/28/18 22:42 Results - Labs CBC & Chem 7: 03/28/18 07:42 03/28/18 07:42 Labs: Laboratory Last Values WBC 12.4 K/mm3 (4.5-11.0) H 03/28/18 07:42 RBC 4.84 M/mm3 (3.65-5.03) 03/28/18 07:42 Hgb 15.0 gm/dl (11.8-15.2) 03/28/18 07:42 Hct 44.0 % (35.5-45.6) 03/28/18 07:42 MCV 91 fl (84-94) 03/28/18 07:42 MCH 31 pg (28-32) 03/28/18 07:42 MCHC 34 % (32-34) 03/28/18 07:42 RDW 13.4 % (13.2-15.2) 03/28/18 07:42 Plt Count 266 K/mm3 (140-440) 03/28/18 07:42 Lymph % (Auto) 15.7 % (13.4-35.0) 03/27/18 07:23 [place] % (Auto) 10.6 % (0.0-7.3) H 03/27/18 07:23 Eos % (Auto) 5.8 % (0.0-4.3) H 03/27/18 07:23 Baso % (Auto) 0.9 % (0.0-1.8) 03/27/18 07:23 Lymph # 1.9 K/mm3 (1.2-5.4) 03/27/18 07:23 [place] # 1.3 K/mm3 (0.0-0.8) H 03/27/18 07:23 Eos # 0.7 K/mm3 (0.0-0.4) H 03/27/18 07:23 Baso # 0.1 K/mm3 (0.0-0.1) 03/27/18 07:23 Add Manual Diff Complete 03/28/18 07:42 Total Counted 100 03/28/18 07:42 Seg Neutrophils % Internal Controls Analyst 03/28/18 07:42 Seg Neuts % (Manual) 95.0 % (40.0-70.0) H 03/28/18 07:42 Band Neutrophils % 0 % 03/28/18 07:42 Lymphocytes % (Manual) 5.0 % (13.4-35.0) L 03/28/18 07:42 Reactive Lymphs % (Man) 0 % 03/28/18 07:42 Monocytes % (Manual) 0 % (0.0-7.3) 03/28/18 07:42 Eosinophils % (Manual) 0 % (0.0-4.3) 03/28/18 07:42 Basophils % (Manual) 0 % (0.0-1.8) 03/28/18 07:42 Metamyelocytes % 0 % 03/28/18 07:42 Myelocytes % 0 % 03/28/18 07:42 Promyelocytes % 0 % 03/28/18 07:42 Blast Cells % 0 % 03/28/18 07:42 Nucleated RBC % Not Reportable 03/28/18 07:42 Seg Neutrophils # 8.0 K/mm3 (1.8-7.7) H 03/27/18 07:23 Seg Neutrophils # Man 11.8 K/mm3 (1.8-7.7) H 03/28/18 07:42 Band Neutrophils # 0.0 K/mm3 03/28/18 07:42 Lymphocytes # (Manual) 0.6 K/mm3 (1.2-5.4) L 03/28/18 07:42 Abs React Lymphs (Man) 0.0 K/mm3 03/28/18 07:42 Monocytes # (Manual) 0.0 K/mm3 (0.0-0.8) 03/28/18 07:42 Eosinophils # (Manual) 0.0 K/mm3 (0.0-0.4) 03/28/18 07:42 Basophils # (Manual) 0.0 K/mm3 (0.0-0.1) 03/28/18 07:42 Metamyelocytes # 0.0 K/mm3 03/28/18 07:42 Myelocytes # 0.0 K/mm3 03/28/18 07:42 Promyelocytes # 0.0 K/mm3 03/28/18 07:42 Blast Cells # 0.0 K/mm3 03/28/18 07:42 WBC Morphology Not Reportable 03/28/18 07:42 Hypersegmented Neuts Not Reportable 03/28/18 07:42 Hyposegmented Neuts Not Reportable 03/28/18 07:42 Hypogranular Neuts Not Reportable 03/28/18 07:42 Smudge Cells Not Reportable 03/28/18 07:42 Toxic Granulation Not Reportable 03/28/18 07:42 Toxic Vacuolation Not Reportable 03/28/18 07:42 Dohle Bodies Not Reportable 03/28/18 07:42 Pelger-Huet Anomaly Not Reportable 03/28/18 07:42 Nghia Rods Not Reportable 03/28/18 07:42 Platelet Estimate Cons 03/28/18 07:42 Clumped Platelets Not Reportable 03/28/18 07:42 Plt Clumps, EDTA Not Reportable 03/28/18 07:42 Large Platelets Few 03/28/18 07:42 Giant Platelets Not Reportable 03/28/18 07:42 Platelet Satelliting Not Reportable 03/28/18 07:42 Plt Morphology Comment Not Reportable 03/28/18 07:42 RBC Morphology Normal 03/28/18 07:42 Dimorphic RBCs Not Reportable 03/28/18 07:42 Polychromasia Not Reportable 03/28/18 07:42 Hypochromasia Not Reportable 03/28/18 07:42 Poikilocytosis Not Reportable 03/28/18 07:42 Anisocytosis Not Reportable 03/28/18 07:42 Microcytosis Not Reportable 03/28/18 07:42 Macrocytosis Not Reportable 03/28/18 07:42 Spherocytes Not Reportable 03/28/18 07:42 Pappenheimer Bodies Not Reportable 03/28/18 07:42 Sickle Cells Not Reportable 03/28/18 07:42 Target Cells Not Reportable 03/28/18 07:42 Tear Drop Cells Not Reportable 03/28/18 07:42 Ovalocytes Not Reportable 03/28/18 07:42 Helmet Cells Not Reportable 03/28/18 07:42 [place] Bodies Not Reportable 03/28/18 07:42 [place] Rings Not Reportable 03/28/18 07:42 Jimbo Cells Not Reportable 03/28/18 07:42 Bite Cells Not Reportable 03/28/18 07:42 Crenated Cell Not Reportable 03/28/18 07:42 Elliptocytes Not Reportable 03/28/18 07:42 Acanthocytes (Spur) Not Reportable 03/28/18 07:42 Rouleaux Not Reportable 03/28/18 07:42 Hemoglobin C Crystals Not Reportable 03/28/18 07:42 Schistocytes Not Reportable 03/28/18 07:42 Malaria parasites Not Reportable 03/28/18 07:42 Vivek Bodies Not Reportable 03/28/18 07:42 Hem Pathologist Commnt No 03/28/18 07:42 PT 13.6 Sec. (12.2-14.9) 03/27/18 09:18 INR 0.99 (0.87-1.13) 03/27/18 09:18 APTT 32.6 Sec. (24.2-36.6) 03/27/18 09:18 D-Dimer < 135 ng/mlDDU (0-234) 03/27/18 09:18 Sodium 136 mmol/L (137-145) L 03/28/18 07:42 Potassium 5.1 mmol/L (3.6-5.0) H 03/28/18 07:42 Chloride 96.3 mmol/L (98-107) L 03/28/18 07:42 Carbon Dioxide 21 mmol/L (22-30) L 03/28/18 07:42 Anion Gap 24 mmol/L 03/28/18 07:42 BUN 13 mg/dL (9-20) 03/28/18 07:42 Creatinine 0.7 mg/dL (0.8-1.5) L 03/28/18 07:42 Estimated GFR > 60 ml/min 03/28/18 07:42 BUN/Creatinine Ratio 19 % 03/28/18 07:42 Glucose 138 mg/dL (75-100) H 03/28/18 07:42 POC Glucose 150 (70-105) H 03/28/18 08:03 Lactic Acid 1.70 mmol/L (0.7-2.0) 03/27/18 09:18 Calcium 9.8 mg/dL (8.4-10.2) 03/28/18 07:42 Total Bilirubin 0.50 mg/dL (0.1-1.2) 03/27/18 07:54 Direct Bilirubin < 0.2 mg/dL (0-0.2) 03/27/18 07:54 Indirect Bilirubin 0.3 mg/dL 03/27/18 07:54 AST 26 units/L (5-40) 03/27/18 07:54 ALT 29 units/L (7-56) 03/27/18 07:54 Alkaline Phosphatase 131 units/L (35-129) H 03/27/18 07:54 Total Creatine Kinase 138 units/L (55-170) 03/27/18 07:54 CK-MB (CK-2) 3.2 ng/mL (0.0-4.0) 03/27/18 07:54 CK-MB (CK-2) Rel Index 2.3 (0-4) 03/27/18 07:54 NT-Pro-B Natriuret Pep 51.16 pg/mL (0-450) 03/27/18 07:23 Total Protein 7.4 g/dL (6.3-8.2) 03/27/18 07:54 Albumin 4.3 g/dL (3.9-5) 03/27/18 07:54 Albumin/Globulin Ratio 1.4 % 03/27/18 07:54 Urine Color Straw (Yellow) 03/27/18 11:20 Urine Turbidity Clear (Clear) 03/27/18 11:20 Urine pH 6.0 (5.0-7.0) 03/27/18 11:20 Ur Specific [place] 1.003 (1.003-1.030) 03/27/18 11:20 Urine Protein <15 mg/dl mg/dL (Negative) 03/27/18 11:20 Urine Glucose (UA) Neg mg/dL (Negative) 03/27/18 11:20 Urine Ketones Neg mg/dL (Negative) 03/27/18 11:20 Urine Blood Neg (Negative) 03/27/18 11:20 Urine Nitrite Neg (Negative) 03/27/18 11:20 Urine Bilirubin Neg (Negative) 03/27/18 11:20 Urine Urobilinogen < 2.0 mg/dL (<2.0) 03/27/18 11:20 Ur Leukocyte Esterase Neg (Negative) 03/27/18 11:20 Urine WBC (Auto) 0.0 /HPF (0.0-6.0) 03/27/18 11:20 Urine RBC (Auto) 1.0 /HPF (0.0-6.0) 03/27/18 11:20 Urine Mucus Few /HPF 03/27/18 11:20 Salicylates 0.6 mg/dL (2.8-20.0) L 03/27/18 07:23 Urine Opiates Screen Presumptive negative 03/27/18 11:20 Urine Methadone Screen Presumptive negative 03/27/18 11:20 Acetaminophen < 5.0 ug/mL (10.0-30.0) L 03/27/18 07:23 Ur Barbiturates Screen Presumptive negative 03/27/18 11:20 Ur Phencyclidine Scrn Presumptive negative 03/27/18 11:20 Ur Amphetamines Screen Presumptive positive 03/27/18 11:20 U Benzodiazepines Scrn Presumptive positive 03/27/18 11:20 Urine Cocaine Screen Presumptive negative 03/27/18 11:20 U Marijuana (THC) Screen Presumptive negative 03/27/18 11:20 Drugs of Abuse Note Disclamer 03/27/18 11:20 Plasma/Serum Alcohol < 0.01 % (0-0.07) 03/27/18 07:23
[2018-03-29] MEDS ORDERED: SOLU-Medrol IV SCH ×2 (10:00→18:00)
[2018-03-29] MEDS: PROTONIX PO SCH (10:34)
--- NOTE | 2018-03-29 11:23 | Progress Note ---
Assessment and Plan Chest pain with syncope. Echocardiogram did not show changes consistent with pulmonary hypertension, although poor pulmonary window reported, no specific pressures. See report. Exercise hypoxemia. Per nursing report: pulse ox at rest on 2-L 94% pulse ox on RA at rest 90% RA ambulation 85-87% ? Pulmonic fibrosis. Review of the patient's chest x-ray essentially shows only postsurgical scar changes in the right lung History of chest pain consistent with neuropathic pain, postsurgical Past medical history of drug-seeking behavior. See record notes. Asking for drugs of 4-6 hours once admitted, per nursing report. Anxiety/panic disorder. During the interview, the patient specifically reported that he did not try to intentionally overdosed with medication and specifically stated not to be suicidal during our conversation Recommendations Psychiatry evaluation in process Very confusing or undetermined history. We'll order chest CTA out of an abundance of caution, especially in the context of questionable syncopal episode and exercise hypoxemia BNP level . Discussed with patient in detail. All questions answered. Subjective Date of service: 03/29/18 Principal diagnosis: overdose, syncope complain, chest pain Interval history: Again, complaining of right sided chest pain. Unclear if the patient has dyspnea or not. Exercise oximetry done, report for nurses noted Objective Vital Signs - 12hr 03/29/18 03/29/18 08:04 08:14 Pulse Rate [ 75 80 Anterior Bilateral Throughout] Respiratory 20 20 Rate [Anterior Bilateral Throughout] O2 Sat by Pulse 94 Oximetry Constitutional: no acute distress, alert Eyes: non-icteric ENT: oropharynx moist Neck: supple, no JVD Effort: other (again, no right-sided hyperesthesia during examination) Ascultation: Bilateral: clear Cardiovascular: regular rate and rhythm Gastrointestinal: normoactive bowel sounds, non-distended Integumentary: normal Extremities: no cyanosis, no edema Neurologic: normal mental status, non-focal exam Psychiatric: mood appropriate, affect normal CBC and BMP: 03/28/18 07:42 03/28/18 07:42 ABG, PT/INR, D-dimer: PT/INR, D-dimer PT 13.6 Sec. (12.2-14.9) 03/27/18 09:18 INR 0.99 (0.87-1.13) 03/27/18 09:18 D-Dimer < 135 ng/mlDDU (0-234) 03/27/18 09:18 Abnormal lab findings: Abnormal Labs 03/27/18 03/27/18 03/27/18 07:23 07:23 07:23 WBC Hgb MCHC [place] % (Auto) Eos % (Auto) [place] # Eos # Seg Neuts % (Manual) Lymphocytes % (Manual) Seg Neutrophils # Seg Neutrophils # Man Lymphocytes # (Manual) Sodium Potassium Chloride 97.5 L Carbon Dioxide Creatinine Glucose POC Glucose Alkaline Phosphatase Salicylates 0.6 L Acetaminophen < 5.0 L 03/27/18 03/27/18 03/28/18 07:23 07:54 07:42 WBC 11.9 H 12.4 H Hgb 15.5 H MCHC 35 H [place] % (Auto) 10.6 H Eos % (Auto) 5.8 H [place] # 1.3 H Eos # 0.7 H Seg Neuts % (Manual) 95.0 H Lymphocytes % (Manual) 5.0 L Seg Neutrophils # 8.0 H Seg Neutrophils # Man 11.8 H Lymphocytes # (Manual) 0.6 L Sodium Potassium Chloride Carbon Dioxide Creatinine Glucose POC Glucose Alkaline Phosphatase 131 H Salicylates Acetaminophen 03/28/18 03/28/18 07:42 08:03 WBC Hgb MCHC [place] % (Auto) Eos % (Auto) [place] # Eos # Seg Neuts % (Manual) Lymphocytes % (Manual) Seg Neutrophils # Seg Neutrophils # Man Lymphocytes # (Manual) Sodium 136 L Potassium 5.1 H Chloride 96.3 L Carbon Dioxide 21 L Creatinine 0.7 L Glucose 138 H POC Glucose 150 H Alkaline Phosphatase Salicylates Acetaminophen
--- NOTE | 2018-03-29 11:55 | Discharge Summary ---
Providers - Providers Date of Admission: 03/27/18 10:06 Attending physician: JOHNATHAN GARRIDO MD 03/27/18 10:06 Consult to Mental Health [CONS] Routine Reason For Exam: suspect overdose ?SI Place consult to:: mental health Notified:: Y Was contact made?: Yes If yes, spoke with:: MARCO ANTONIO Time called:: 10:45 03/27/18 10:45 Consult to Physician [CONS] Routine Comment: A/S NOTIFIED 1110 ANA Consulting Provider: KEENAN GODDARD Physician Instructions: Reason For Exam: ?pulmonary fibrosis 03/27/18 19:05 Consult to Mental Health [CONS] Stat Reason For Exam: eval for xanax ingestion, possible suicide attempt Place consult to:: Notified:: y Was contact made?: Yes If yes, spoke with:: Jana Time called:: 19:06 03/29/18 09:50 Consult to Physician [CONS] Routine Comment: Consulting Provider: VIK BRITO Physician Instructions: Reason For Exam: SYNCOPE AND CHEST PAIN 03/29/18 09:55 Consult to Case Management [CONS] Routine Services Needed at Discharge: Home O2 Notified:: yes Primary care physician: [employer]CH[employer]IC Hospitalization Reason for admission: chest pain and syncope Condition: Stable Hospital course: Patient's a 47-year-old male with past medical history of,GERD, [place], Tourette 's Syndrome, Necrotizing Pneumonia S/P Lobectomy presents to ED for evaluation. chronic right-sided pain chronically on pain medication up until November of last year. The patient also had an lobectomy secondary to narcotizing pneumonia in 2013. Presents to the hospital today following multiple syncopal episode which he states is secondary to severe right-sided chest pain and persistent cough then leads to passing out. Although his EMR shows history of substance abuse and bipolar disorder the patient denies this. On presentation to the ER he was placed on oxygen and where recommended for admission for possible drug overdose with possible suicidal ideation. The patient denies any homicidal ideation to me at this time. He reports that the pain on his right side of his chest as a 5-10 intensity at this time will sometimes goes up to 10 over 10 intensity that is associated. He denies any other chest pain. He denies follow-up with primary care physicians due to insurance costs. He denies any productive cough. He reports that his symptoms has been worse recently problem to him to have very poor quality of life and easily fatigued. On review of the ER physician the patient was actually brought to the hospital by EMS. After this possibly overdosing on her friend's Xanax. The patient at this point appears to be having Guardian history as his history keeps changing him out of the ER physician he is no longer suicidal and never mentioned that he was suicidal. This point, show what to believe up preadmission drug screen is positive for benzodiazepines and amphetamine. Despite the patient's denial of drug abuse and suicidal ideation which his story appears to add up in the case that he is not suicidal as the Xanax he took from a friend was very minimal in nature and he has not been on Xanax for months. He was seen by pulmonary emboli and an echocardiogram was also obtained although poor pulmonary windows were noted it did not appear that he has pulmonary fibrosis a CT of the chest showed emphysematous changes. The patient again denies suicidal ideation review of PNP aware shows that the patient has not obtained any pain medications since November of this year. He also was noted to be hypoxic on ambulation with side dropping to 88% information for home O2 was provided to the patient and he verbalized that he have his will make financial means to obtain this while waiting for change in insurance. The patient demanded to be discharged today so that he can [facility] with the [facility]. This is discussed with patient evaluation agreed with. Condition is stable. Patient was also seen by psych and not a 1013. Visteril was given for anxiety. Patient declined inpatient cardiology eval as he states he passess out due to pain and inability to get his breath. Atypical right side chest pain Recurrent syncope Acute infection and dyspnea emphsema Asthma GERD Hyperkalemia Status post lobectomy Tourette's Syndrome, Chronic pain syndrome Tobbacco dependance ingestion of xanax/non lethal overdose anxiety disorder, unspecified, r/o substance use disorder.r/o bipolar disorder major depression, unspecified Disposition: DC-01 TO HOME OR SELFCARE Time spent for discharge: 35 mins Core Measure Documentation - Palliative Care Palliative Care/ Comfort Measures: Not Applicable - Core Measures Any of the following diagnoses?: none - VTE Discharge Requirements Deep Vein Thrombosis/Pulmonary Embolism Present on Admission: No Exam - Physical Exam Narrative exam: VITAL SIGNS: Reviewed. GENERAL: The patient appeared well nourished and normally developed, chronically ill appearing. Vital signs as documented. HEAD: No signs of head trauma. EYES: Pupils are equal. Extraocular motions intact. EARS: Hearing grossly intact. MOUTH: Oropharynx is normal. NECK: No adenopathy, no JVD. CHEST: Chest with clear breath sounds bilaterally. No wheezes, rales, or rhonchi. CARDIAC: Regular rate and rhythm. S1 and S2, without murmurs, gallops, or rubs. VASCULAR: No Edema. Peripheral pulses normal and equal in all extremities. ABDOMEN: Soft, without detectable tenderness. No sign of distention. No rebound or guarding, and no masses palpated. Bowel Sounds normal. MUSCULOSKELETAL: Good range of motion of all major joints. Extremities without clubbing, cyanosis or edema. NEUROLOGIC EXAM: Alert and oriented x 3. No focal sensory or strength deficits. Speech normal. Follows commands. PSYCHIATRIC: Mood normal. SKIN: Surgical scar right chest wall, complaints of hypersensitivity to A chest - Constitutional Vitals: Temp Pulse Resp BP Pulse Ox 98.3 F 80 20 121/72 94 03/28/18 22:42 03/29/18 08:14 03/29/18 08:14 03/28/18 22:42 03/29/18 08:04 Plan Activity: advance as tolerated, fall precautions Diet: regular Special Instructions: record daily BP diary, home oxygen via (nasal cannula @ 2 liters per minute) Additional Instructions: outpatient cardiology eval for Event monitor Follow up with: TIARA PRINCE MD [Staff Physician] - 7 Days PRIMARY MD MESSI [Primary Care Provider] - 7 Days MARJAN ALLEN MD [Staff Physician] - 7 Days JONES SNOW MD [Staff Physician] - 7 Days Prescriptions: ALBUTEROL Inhaler (OR & NICU) [ProAir HFA Inhaler] 2 puff IH QID PRN #1 inha PRN Reason: Shortness Of Breath hydrOXYzine PAMOATE [Vistaril] 50 mg PO BID PRN #30 capsule PRN Reason: Anxiety oxyCODONE /ACETAMINOPHEN [Percocet 5/325] 1 tab PO Q6HR PRN #10 tablet PRN Reason: Pain
[2018-03-29] MEDS ORDERED: NACL 0.9% 50 ML ONE (12:03)
--- NOTE | 2018-03-29 12:28 | Progress Note ---
Subjective - Reason for Consult Consult date: 03/29/18 Reason for consult: Psychiatry Follow-up - Chief Complaint Chief complaint: "I have learned my lesson" He states there was a moment in time he was having an episode of shortness of breath, in which he thought he was going to . His friend have given him xanax 1mg, 4 tabs, to help with anxiety. He took them all at once. Today the patient is calm and cooperative during the assessment. He stated that his anxiety is secondary to his shortness of breath he experience. He stated that he will not take any medication that's not prescribed for him. He denies wanting to kill himself when asked. He denies any manic episodes. He stated that he have a lot to live for (himself and family). He denies SI/HI's and AVH' s. He stated that the Vistaril "works." He denies any side effects of his medication. Mental Status Exam - Vital signs Last Vital Signs Temp 98.3 F 03/28/18 22:42 Pulse 80 03/29/18 08:14 Resp 20 03/29/18 08:14 BP 121/72 03/28/18 22:42 Pulse Ox 94 03/29/18 08:04 - Exam Narrative exam: MSE: Appearance: calm, cooperative Behavior: regular eye contact Speech: regular rate and low tone Mood: "okay" Affect: congruent to mood Thought Process: linear Thought Content: denies SI/HI's and AVH's Motor Activity: lying in bed Cognition: A/O x 3 Insight: appropriate Judgment: appropriate Assessment and Plan Impression: Unintentional overdose. Ingestion of xanax/non lethal overdose. Anxiety DO, unspecified. MDD, unspecified. Today the patient is calm and cooperative during the assessment. Intermittent steroid use may contribute to his anxiety/depression. UDS positive for amphetamines and benzos. The patient is no threat to self. DDx: R/O Bipolar DO, R/O Substance Use DO Recommendations/Plan: Continue Vistaril 50 mg PO BID PRN for anxiety. Discussed risk/benfits of SSRI's, the patient prefer not to take these medications at this time. The patient can follow up at [facility] for outpatient psy services. Discussed the importance to only take medication prescribed for himself.
--- NOTE | 2018-03-29 12:32 | Cat Scan Report ---
CTA CHEST: HISTORY: Hypoxia on exercise, right lobectomy. COMPARISON: 07/10/17. TECHNIQUE: Helical CT in 1.25mm intervals following IV contrast. Pulmonary embolus protocol. Sagittal and coronal reformatted images. Rotational MIP images. FINDINGS: Contrast bolus is satisfactory. No pulmonary embolus is identified. Thyroid gland: Normal. Tracheobronchial tree: Normal. Esophagus: Normal. Heart: Normal. Pericardium: Normal. Mediastinum: Normal. Lung [place]: Partial right pneumonectomy changes. Underlying emphysematous changes are stable. There is linear scarring in the right lower lobe, otherwise, the lungs are clear. No evidence for suspicious mass or infiltrate. Pleural Spaces: Small right pleural effusion or right pleural thickening is unchanged. No left pleural process or pneumothorax. Musculoskeletal: Intact. IMPRESSION: No evidence for pulmonary embolus. Emphysema. Partial right pneumonectomy. Small right pleural effusion or pleural thickening, unchanged. No acute cardiopulmonary process is appreciated. No significant change since 07/10/17.
[2018-03-29] MEDS: VISTARIL PO PRN (14:05)
[2018-03-29 14:09] VITALS: BP 140/85
== END 2018-03-29 16:06 | disposition home or self-care (01) | DRG 917 ==
LOC: ED 06:17 → 3A 10:06
PROVIDERS: ADMIT Internal Medicine; ATTEND Internal Medicine
PROC: 3E0234Z Introduction of Serum, Toxoid and Vaccine into Muscle, Percutaneous Approach (ICD-10-PCS; principal; 2018-03-28)
DX: T42.4X2A Poisoning by benzodiazepines, intentional self-harm, initial encounter (principal); J96.90 Respiratory failure, unspecified, unspecified whether with hypoxia or hypercapnia; R55 Syncope and collapse; R07.89 Other chest pain; Z88.8 Allergy status to other drugs, medicaments and biological substances; Z23 Encounter for immunization; K21.9 Gastro-esophageal reflux disease without esophagitis; J45.909 Unspecified asthma, uncomplicated; F95.2 Tourette's disorder; F41.9 Anxiety disorder, unspecified; F41.0 Panic disorder [episodic paroxysmal anxiety]; E87.5 Hyperkalemia; G89.4 Chronic pain syndrome; F17.200 Nicotine dependence, unspecified, uncomplicated; I27.20 Pulmonary hypertension, unspecified; F32.9 Major depressive disorder, single episode, unspecified; Y92.89 Other specified places as the place of occurrence of the external cause
CPT/HCPCS: 36415; 70450; 71046; 71275; 80048; 80074; 80307; 80320; 81001; 82140; 82550; 82553; 82962; 83880; 85007; 85025; 85379; 85610; 85730; 87116; 90732; 93005; 93010; 93306; 94640; 94760; G0480; J2060; J2270; J2405; J2930; J7030; Q0177; Q9967

== ENCOUNTER 2018-04-25 19:05 | Emergency (ER) | payer SELFPAY ==
--- NOTE | 2018-04-25 20:32 | XRay Report ---
FINAL REPORT EXAM: XR RIBS UNI W PA CHEST 3+V RT HISTORY: Riight rib fracture/ SHIMA TECHNIQUE: PA view of the chest and multiple views right ribs Comparison: Chest x-ray dated March 27, 2018 FINDINGS: There is pulmonary consolidation in the right lung base with blunting of the right costophrenic angle similar in appearance to the previous study. There hyperinflation of the left lung. There is no evidence of pneumothorax. There appear to be displaced fractures of the anterior aspect of the right 4th and 5th ribs. Multiple surgical clips are projected over the right daniel thorax. IMPRESSION: 1. Appearance of displaced fractures of the anterior aspect of the right 4th and 5th ribs. 2. Otherwise no significant change since previous chest x-ray dated March 27, 2018.
[2018-04-25 22:07] LABS: Basophils # (Auto) 0.1 K/mm3 (0.0-0.1); Eosinophils # (Auto) 0.5 K/mm3 (0.0-0.4); Eosinophils % (Auto) 4.9 % (0.0-4.3); Hemoglobin 15.7 gm/dl (11.8-15.2); Lymphocytes # (Auto) 1.9 K/mm3 (1.2-5.4); Lymphocytes % (Auto) 20.7 % (13.4-35.0); Mean Corpuscular HGB Conc 33 % (32-34); Mean Corpuscular Hemoglobin 31 pg (28-32); Mean Corpuscular Volume 92 fl (84-94); Monocytes # (Auto) 1.1 K/mm3 (0.0-0.8); Platelet Count 266 K/mm3 (140-440); Red Blood Count 5.09 M/mm3 (3.65-5.03); Red Cell Distribution Width 13.3 % (13.2-15.2)
[2018-04-25 22:16] LABS: BUN/Creatinine Ratio 11; Blood Urea Nitrogen 8 mg/dL (9-20); Calcium 9.6 mg/dL (8.4-10.2); Hemolysis Index 3
[2018-04-26] MEDS ORDERED: NORCO 5/325 PO ONE (04:15)
--- NOTE | 2018-04-26 04:27 | Emergency Department Report ---
HPI - General Chief Complaint: Dyspnea/Respdistress Time Seen by Provider: 04/26/18 03:49 - HPI HPI: The patient's 47-year-old male presents for evaluation of chest pain. The patient reports right-sided chest pain for the past week, 10/10 in severity, sharp in quality, exacerbated with movement. He shares that he sustained anterior right-sided broken ribs, recently diagnosed at [facility]. The patient denies fever, no trauma to the chest, dyspnea, syncope, hemoptysis, unilateral leg swelling, recent immobilization, history of DVT or PE, hx of recent cancer. ED Past Medical Hx - Past Medical History Hx Hypertension: No Hx CVA: No Hx Heart Attack/AMI: No Hx Congestive Heart Failure: No Hx Diabetes: No Hx Deep Vein Thrombosis: No Hx GERD: Yes Hx Liver Disease: No Hx Renal Disease: No Hx Sickle Cell Disease: No Hx Arthritis: Yes Hx Seizures: No Hx Kidney Stones: No Hx Psychiatric Treatment: Yes (TOURETTE SYNDROME) Hx Asthma: Yes Hx COPD: No Hx Dementia: No Hx HIV: No Additional medical history: necrotizing pneumonia- september 2013 - Surgical History Hx Coronary Stent: No Hx Open Heart Surgery: No Hx Pacemaker: No Hx Internal Defibrillator: No Hx Cholecystectomy: No Hx Appendectomy: No Hx Breast Surgery: No Additional Surgical History: Left testicle removed @ age 16, Bakari in left leg @ age 26, R lower lobectomy, right rib removal - Social History Smoking Status: Never Smoker Substance Use Type: None - Medications Home Medications: Home Medications Medication Instructions Recorded Confirmed Last Taken Type HYDROcodone/APAP 10-325 [Homer 1 each PO Q8HR PRN #12 tablet 07/13/17 03/27/18 03/26/18 Rx 10-325 mg TAB] guaiFENesin DM [Guaifenesin Dm 10 ml PO Q4H PRN #240 ml 07/13/17 03/27/18 Rx Syrup] ALBUTEROL NEB's [Proventil 0.083% 2.5 mg IH TID PRN #1 neb 03/03/18 03/27/18 Rx NEBS] ALBUTEROL Inhaler (OR & NICU) 2 puff IH QID PRN #1 inha 03/29/18 Unknown Rx [ProAir HFA Inhaler] hydrOXYzine PAMOATE [Vistaril] 50 mg PO BID PRN #30 capsule 03/29/18 Unknown Rx oxyCODONE /ACETAMINOPHEN [Percocet 1 tab PO Q6HR PRN #10 tablet 03/29/18 Unknown Rx 5/325] HYDROcodone/APAP 5-325 [Homer 1 each PO Q6HR PRN #12 tablet 04/26/18 Unknown Rx 5/325] ED Review of Systems ROS: Stated complaint: BROKEN RIB Other details as noted in HPI Constitutional: denies: fever ENT: denies: throat or neck pain Respiratory: denies: cough, shortness of breath Cardiovascular: reports: chest pain Endocrine: denies unexplained weight loss or gain Gastrointestinal: denies: abdominal pain, nausea Genitourinary: denies: dysuria Musculoskeletal: denies: leg swelling Skin: denies: rash Neurological: denies: headache Hematological/Lymphatic: denies: easy bleeding or easy bruising Psych: denies sadness or hopelessness Physical Exam - Physical Exam Vital Signs: Vital Signs 04/25/18 04/26/18 19:17 02:17 Temperature 97.6 F 98.8 F Pulse Rate 88 94 H Respiratory 18 20 Rate Blood Pressure 171/101 165/107 O2 Sat by Pulse 97 96 Oximetry Physical Exam: General: well-nourished, well-developed, no acute distress Head: Normocephalic, atraumatic Eyes: normal sclera ENT: Mucous membranes are pink and moist Neck: trachea midline, neck supple, No neck stiffness, no cervical adenopathy Respiratory: Breath sounds equal bilaterally, no wheezing, rales, or rhonchi Cardio: S1 and S2 present, no murmurs, rubs, gallops, capillary refill is brisk Abdomen: Normoactive bowel sounds, soft abdomen, no tenderness Chest WALL/Back: tenderness to palpation of the right anterior chest wall present, there is no crepitus, bruising, redness, fluctuance, swelling Musc: No pitting edema Skin: No rash Neuro: no facial drooping, normal speech Psych: Normal affect ED Course Vital Signs 04/25/18 04/26/18 19:17 02:17 Temperature 97.6 F 98.8 F Pulse Rate 88 94 H Respiratory 18 20 Rate Blood Pressure 171/101 165/107 O2 Sat by Pulse 97 96 Oximetry ED Medical Decision Making - Lab Data Result diagrams: 04/25/18 21:48 04/25/18 21:48 - Medical Decision Making The patient was seen and examined by myself. The patient is placed on a monitoring coordinator and continuous pulse ox. On initial evaluation, the patient was found to be in no distress. EKG was negative for findings suggestive of acute cardiac infarct. Labs and imaging are obtained. The patient given a tablet Homer for his pain. Chest x-ray reveals right anterior fourth and fifth rib fractures without pneumothorax. Lab results were non-concerning including levels of troponin, WBC, hemoglobin, hematocrit, electrolytes, renal function. The patient was reevaluated and reported that their symptoms were markedly improved. As the patient has a GONZALEZ risk score less than 2, and a well's score less than 2, the patient is at low risk of ACS or pulmonary emboli etiology of their symptoms. The patient is stable for discharge with outpatient follow-up. The patient is given follow-up and return instructions. The patient expressed understanding and agreed with the plan. The patient is discharged in stable condition. Critical care attestation.: If time is entered above; I have spent that time in minutes in the direct care of this critically ill patient, excluding procedure time. ED Disposition Clinical Impression: Acute chest pain Right rib fracture Qualifiers: Encounter type: subsequent encounter Rib fracture type: multiple ribs Fracture type: closed Fracture healing: with nonunion Qualified Code(s): S22.41XK - Multiple fractures of ribs, right side, subsequent encounter for fracture with nonunion Disposition: DC-01 TO HOME OR SELFCARE Is pt being admited?: No Does the pt Need Aspirin: No Condition: Stable Instructions: Chest Pain (ED), Rib Fracture (ED) Referrals: PRIMARY CARE, [Primary Care Provider] - 3-5 Days Time of Disposition: 04:17
[2018-04-26 06:25] VITALS: BP 164/96
== END 2018-04-26 05:10 | disposition home or self-care (01) ==
LOC: ED 19:05
DX: S22.41XK Multiple fractures of ribs, right side, subsequent encounter for fracture with nonunion (principal); R07.89 Other chest pain; K21.9 Gastro-esophageal reflux disease without esophagitis; J45.909 Unspecified asthma, uncomplicated; Z79.899 Other long term (current) drug therapy; Z88.6 Allergy status to analgesic agent; X58.XXXA Exposure to other specified factors, initial encounter; Y93.89 Activity, other specified; Y99.8 Other external cause status; Y92.89 Other specified places as the place of occurrence of the external cause
CPT/HCPCS: 36415; 80048; 84484; 85025; 93005; 93010

== ENCOUNTER 2018-11-17 19:43 | Emergency (ER) | payer OTHER ==
--- NOTE | 2018-11-17 20:12 | Emergency Department Report ---
Blank Doc - Documentation Documentation: This is a 47-year-old male that presents with URI symptoms. Also has some SOB. This initial assessment/diagnostic orders/clinical plan/treatment(s) is/are subject to change based on patient's health status, clinical progression and re- assessment by fellow clinical providers in the ED. Further treatment and workup at subsequent clinical providers discretion. Patient/guardians urged not to elope from the ED as their condition may be serious if not clinically assessed and managed. Initial orders include: 1- Patient sent to [facility] for further evaluation and treatment 2- CXR
[2018-11-17 20:22] VITALS: BP 132/91
--- NOTE | 2018-11-17 22:05 | XRay Report ---
PROCEDURE: XR CHEST ROUTINE 2V TECHNIQUE: PA and lateral views of the chest were obtained. HISTORY: cough COMPARISONS: Prior chest x-ray 08/09/2018 FINDINGS: There is chronic elevation of the right diaphragm. 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 Pleural scarring is suspected. Minimal effusion is not entirely excluded. Yasmin ngs are hyperinflated consistent with underlying COPD. Portions of the right fourth rib anteriorly has previously been resected. Left lung is clear. Heart size and pulmonary vasculature appear normal. IMPRESSION: Postsurgical changes visualized in the right hemithorax. There appears to be pleural scarring and par tial resection of ribs. There is elevation of the right diaphragm. COPD. No acute abnormalities are identified.. This document is electronically signed by Rafael Ramírez MD., November 17 2018 10:03:52 PM ET
[2018-11-17] MEDS ORDERED: PROVENTIL IH ONE (22:06)
[2018-11-17] MEDS ORDERED: SOLU-Medrol IV ONE (22:06)
[2018-11-17 22:34] LABS: Hematocrit 46.6 % (35.5-45.6); Hemoglobin 15.8 gm/dl (11.8-15.2); Mean Corpuscular HGB Conc 34 % (32-34); Mean Corpuscular Volume 92 fl (84-94); Platelet Count 255 K/mm3 (140-440); Red Blood Count 5.06 M/mm3 (3.65-5.03); Red Cell Distribution Width 14.2 % (13.2-15.2)
--- NOTE | 2018-11-17 22:41 | Emergency Department Report ---
ED Shortness of Breath HPI - General Chief Complaint: Upper Respiratory Infection Stated Complaint: SHIMA Time Seen by Provider: 11/17/18 20:10 Source: patient Mode of arrival: Ambulatory Limitations: No Limitations - History of Present Illness Initial Comments: pT IS A 47-year-old who comes to the ER complaining of difficulty in breathing. He states that this is been occurring for over a month. He has a history of previous wedge resection 4 years ago. Patient also has a history of chronic pain. MD Complaint: shortness of breath -: week(s) Severity: mild Consistency: constant Improves With: nothing Worsens With: nothing Known History Of: COPD, other Treatments Prior to Arrival: none - Related Data Home Oxygen Therapy: No Previous Rx's Medication Instructions Recorded Last Taken Type HYDROcodone/APAP 10-325 [[place]ima 1 each PO Q8HR PRN #12 tablet 07/13/17 03/26/18 Rx 10-325 mg TAB] ALBUTEROL NEB's [Proventil 0.083% 2.5 mg IH TID PRN #1 neb 03/03/18 03/26/18 Rx NEBS] ALBUTEROL Inhaler (OR & NICU) 2 puff IH QID PRN #1 inha 03/29/18 Unknown Rx [ProAir HFA Inhaler] oxyCODONE /ACETAMINOPHEN [Percocet 1 tab PO Q6HR PRN #10 tablet 03/29/18 Unknown Rx 5/325] Albuterol Sulfate [Ventolin HFA] 2 puff IH Q4H PRN #1 hfa.aer.ad 11/18/18 Unknown Rx Cetirizine HCl [ZyrTEC] 10 mg PO DAILY #30 capsule 11/18/18 Unknown Rx Fluticasone [Flonase] 1 spray NS QDAY #1 bottle 11/18/18 Unknown Rx predniSONE [Deltasone] 20 mg PO DAILY #5 tablet 11/18/18 Unknown Rx Allergies Allergy/AdvReac Type Severity Reaction Status Date / Time ketorolac tromethamine Allergy Vomiting Verified 05/27/14 15:42 [From Toradol] tramadol AdvReac Unknown Verified 05/27/14 15:42 ED Review of Systems ROS: Stated complaint: SHIMA Other details as noted in HPI Comment: All other systems reviewed and negative ED Past Medical Hx - Past Medical History Hx Hypertension: No Hx CVA: No Hx Heart Attack/AMI: No Hx Congestive Heart Failure: No Hx Diabetes: No Hx Deep Vein Thrombosis: No Hx GERD: Yes Hx Liver Disease: No Hx Renal Disease: No Hx Sickle Cell Disease: No Hx Arthritis: Yes Hx Seizures: No Hx Kidney Stones: No Hx Psychiatric Treatment: Yes (TOURETTE SYNDROME) Hx Asthma: Yes Hx COPD: No Hx Dementia: No Hx HIV: No Additional medical history: necrotizing pneumonia- september 2013 - Surgical History Hx Coronary Stent: No Hx Open Heart Surgery: No Hx Pacemaker: No Hx Internal Defibrillator: No Hx Cholecystectomy: No Hx Appendectomy: No Hx Breast Surgery: No Additional Surgical History: Left testicle removed @ age 16, Bakari in left leg @ age 26, R lower lobectomy, right rib removal - Social History Smoking Status: Never Smoker Substance Use Type: None - Medications Home Medications: Home Medications Medication Instructions Recorded Confirmed Last Taken Type HYDROcodone/APAP 10-325 [Y[place]ima 1 each PO Q8HR PRN #12 tablet 07/13/17 03/27/18 03/26/18 Rx 10-325 mg TAB] ALBUTEROL NEB's [Proventil 0.083% 2.5 mg IH TID PRN #1 neb 03/03/18 03/27/18 03/26/18 Rx NEBS] ALBUTEROL Inhaler (OR & NICU) 2 puff IH QID PRN #1 inha 03/29/18 Unknown Rx [ProAir HFA Inhaler] oxyCODONE /ACETAMINOPHEN [Percocet 1 tab PO Q6HR PRN #10 tablet 03/29/18 Unknown Rx 5/325] Albuterol Sulfate [Ventolin HFA] 2 puff IH Q4H PRN #1 hfa.aer.ad 11/18/18 Unknown Rx Cetirizine HCl [ZyrTEC] 10 mg PO DAILY #30 capsule 11/18/18 Unknown Rx Fluticasone [Flonase] 1 spray NS QDAY #1 bottle 11/18/18 Unknown Rx predniSONE [Deltasone] 20 mg PO DAILY #5 tablet 11/18/18 Unknown Rx ED Physical Exam - General Limitations: No Limitations General appearance: alert - Head Head exam: Present: atraumatic, normocephalic - Eye Eye exam: Present: normal appearance, PERRL - ENT ENT exam: Present: mucous membranes moist - Neck Neck exam: Present: normal inspection, full ROM - Respiratory Respiratory exam: Present: normal lung sounds bilaterally, wheezes. Absent: respiratory distress, rales, rhonchi, stridor, chest wall tenderness, accessory muscle use - Cardiovascular Cardiovascular Exam: Present: regular rate - GI/Abdominal GI/Abdominal exam: Present: soft, normal bowel sounds - Extremities Exam Extremities exam: Present: normal inspection, full ROM - Back Exam Back exam: Present: normal inspection, full ROM - Neurological Exam Neurological exam: Present: alert, oriented X3, CN II-XII intact - Psychiatric Psychiatric exam: Present: normal affect, normal mood - Skin Skin exam: Present: warm, dry ED Course Vital Signs 11/17/18 11/18/18 20:20 00:49 Temperature 98.2 F Pulse Rate 106 H 88 Respiratory 18 17 Rate Blood Pressure 132/91 O2 Sat by Pulse 94 98 Oximetry ED Medical Decision Making - Lab Data Result diagrams: 11/17/18 22:21 11/17/18 22:21 - Radiology Data Radiology results: report reviewed, image reviewed - Medical Decision Making Lab Results 11/17/18 11/17/18 11/17/18 Range/Units 22:21 22:21 22:21 WBC 10.1 (4.5-11.0) K/mm3 RBC 5.06 H (3.65-5.03) M/mm3 Hgb 15.8 H (11.8-15.2) gm/dl Hct 46.6 H (35.5-45.6) % MCV 92 (84-94) fl MCH 31 (28-32) pg MCHC 34 (32-34) % RDW 14.2 (13.2-15.2) % Plt Count 255 (140-440) K/mm3 Sodium 136 L (137-145) mmol/L Potassium 4.2 (3.6-5.0) mmol/L Chloride 99.5 (98-107) mmol/L Carbon Dioxide 25 (22-30) mmol/L Anion Gap 16 mmol/L BUN 11 (9-20) mg/dL Creatinine 0.8 (0.8-1.5) mg/dL Estimated GFR > 60 ml/min BUN/Creatinine Ratio 14 % Glucose 88 (75-100) mg/dL Calcium 9.4 (8.4-10.2) mg/dL Total Bilirubin 0.50 (0.1-1.2) mg/dL AST 21 (5-40) units/L ALT 19 (7-56) units/L Alkaline Phosphatase 138 H (35-129) units/L NT-Pro-B Natriuret Pep 27.27 (0-450) pg/mL Total Protein 7.2 (6.3-8.2) g/dL Albumin 4.1 (3.9-5) g/dL Albumin/Globulin Ratio 1.3 % Vital Signs 11/17/18 11/18/18 20:20 00:49 Temperature 98.2 F Pulse Rate 106 H 88 Respiratory 18 17 Rate Blood Pressure 132/91 O2 Sat by Pulse [address] scan results noted and reviewed with patient. LABS noted and reviewed with patient. I Suspect there is a component of drug-seeking behavior. PT HAS been medicated in the emergency room. Note his allergies to Toradol and tramadol. Patient is ambulatory and non-hypoxic with a walk test. Per the provider with walking his sat was 98%. Patient being discharged to home with outpatient follow-up Critical care attestation.: If time is entered above; I have spent that time in minutes in the direct care of this critically ill patient, excluding procedure time. ED Disposition Clinical Impression: GERD (gastroesophageal reflux disease), Pleural effusion, Chronic pain, Emphysema, COPD with acute exacerbation Disposition: DC-01 TO HOME OR SELFCARE Is pt being admited?: No Does the pt Need Aspirin: No Condition: Stable Instructions: Chronic Obstructive Pulmonary Disease (ED), Pleural Effusion (ED) Additional Instructions: FOLLOW UP WITH PCP IN AM MED ORDERED TODAY DIET AND ACTIVITY TOLERATED Prescriptions: predniSONE [Deltasone] 20 mg PO DAILY #5 tablet Fluticasone [Flonase] 1 spray NS QDAY #1 bottle Albuterol Sulfate [Ventolin HFA] 2 puff IH Q4H PRN #1 hfa.aer.ad PRN Reason: Shortness Of Breath Cetirizine HCl [ZyrTEC] 10 mg PO DAILY #30 capsule Referrals: GENIA FAJARDO MD [Primary Care Provider] - 3-5 Days Time of Disposition: 00:37
[2018-11-17 22:49] LABS: Alanine Aminotransferase 19 units/L (7-56); Albumin 4.1 g/dL (3.9-5); BUN/Creatinine Ratio 14; Blood Urea Nitrogen 11 mg/dL (9-20); Calcium 9.4 mg/dL (8.4-10.2); Hemolysis Index 12
[2018-11-17] MEDS ORDERED: NORCO 5/325 PO ONE (22:49)
[2018-11-17] MEDS ORDERED: NORCO 5/325 ONE (22:51)
[2018-11-17] MEDS ORDERED: MORPHINE IV ONE (23:52)
[2018-11-17] MEDS ORDERED: MORPHINE ONE (23:54)
--- NOTE | 2018-11-18 00:27 | Cat Scan Report ---
PROCEDURE: CT CHEST W CON TECHNIQUE: Computerized axial tomography of the chest was performed during the IV injection of iodin ated nonionic contrast. CT DOSE LENGTH PRODUCT: mGycm HISTORY: SOB COMPARISONS: 03/29/2018 . FINDINGS: Heart and pericardium: Normal. Thoracic aorta: Normal. Pulmonary vasculature: Normal. Lymph nodes: No enlarged thoracic lymph nodes. Lungs: The lungs are expanded. There are fibrotic changes at the right lung base.. Pleural space: There is right pleural thickening. There is a small right pleural effusion. There are no pneumothoraces. Musculoskeletal structures: There are old right rib fractures... Upper abdominal structures: No significant abnormality. IMPRESSION: The heart size is normal.. The lungs are expanded. There are fibrotic changes at the right lung base.. There is right pleural thickening. There is a small right pleural effusion. There are no pneumothorac es. This document is electronically signed by Angelito Velasco MD., November 18 2018 12:25:29 AM ET
[2018-11-18] MEDS ORDERED: ALUM-MAG HYDROX-SIMETH 200-200-20MG/5ML ONE (00:36)
[2018-11-18] MEDS ORDERED: LIDOCAINE VISCOUS 2% ONE (00:37)
[2018-11-18] MEDS ORDERED: LIDOCAINE VISCOUS 2% PO ONE (00:38)
[2018-11-18] MEDS ORDERED: ALUM-MAG HYDROX-SIMETH 200-200-20MG/5ML PO ONE (00:38)
== END 2018-11-18 00:54 | disposition home or self-care (01) ==
LOC: ED 19:43
DX: K21.9 Gastro-esophageal reflux disease without esophagitis (principal); J44.1 Chronic obstructive pulmonary disease with (acute) exacerbation; J43.9 Emphysema, unspecified; J90 Pleural effusion, not elsewhere classified; G89.29 Other chronic pain; M19.90 Unspecified osteoarthritis, unspecified site; F95.2 Tourette's disorder; Z88.6 Allergy status to analgesic agent; Z79.899 Other long term (current) drug therapy
CPT/HCPCS: 36415; 71046; 71260; 80053; 83880; 85027; 96374; 99284; J2270; J2930; Q9967

== ENCOUNTER 2019-06-08 10:15 | Emergency (ER) | payer SELFPAY ==
--- NOTE | 2019-06-08 11:11 | XRay Report ---
CHEST 2 VIEWS INDICATION: pain. Left side hurting from fall, shortness of breath, right lung surgery 6 years ago COMPARISON: 11/17/2018 FINDINGS: Support devices: None. Heart: Within normal limits. Lungs/pleura: Chronic pleural parenchymal changes in the right lung are stable. This may represent pa rtial right pneumonectomy. The left lung is hyperinflated but clear. No evidence for infiltrate or pl eural effusion. No pneumothorax. Additional findings: No displaced rib fracture is detected on chest x-ray. IMPRESSION: No acute findings. Chronic pleural parenchymal changes in the right lung. No change since 11/14/2018. Signer Name: Edgardo Ortega Jr, MD Signed: 06/08/2019 11:07 AM Workstation Name: [id number]
[2019-06-08] MEDS ORDERED: MORPHINE 4 MG/1 ML INJ IV ONE (11:18)
[2019-06-08] MEDS ORDERED: SODIUM CHLORIDE 0.9% 1000 ML 1,000 ML IV ONE (11:18)
[2019-06-08] MEDS ORDERED: ONDANSETRON 4 MG/2 ML INJ IV ONE (11:18)
--- NOTE | 2019-06-08 11:23 | Emergency Department Report ---
ED Fall HPI - General Chief Complaint: Back Pain/Injury Stated Complaint: (L) RIB PAIN/BACK LEG PAIN Time Seen by Provider: 06/08/19 10:51 Source: patient Mode of arrival: Ambulatory - History of Present Illness Initial Comments: Patient is 48-year-old male with 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 Patient presented to the ER complaining of fall yesterday. Patient stated that he tripped and fell on his left side landing on a rail. Patient is complaining of left lower chest pain and left upper abdominal pain. She denied any head injury, loss of consciousness, neck injury or any other extremities injuries. MD Complaint: fall -: Last night Fall From: standing Fall Witnessed: yes, by family Place Fall Occurred: home Loss of Consciousness: none Prolonged Down Time?: no Symptoms Prior to Fall: none Location: chest, back Severity: moderate Severity scale (0 -10): 5 Context: tripped/slipped - Related Data Previous Rx's Medication Instructions Recorded Last Taken Type HYDROcodone/APAP 10-325 [[place] 1 each PO Q8HR PRN #12 tablet 07/13/17 03/26/18 Rx 10-325 mg TAB] ALBUTEROL NEB's [Proventil 0.083% 2.5 mg IH TID PRN #1 neb 03/03/18 03/26/18 Rx NEBS] ALBUTEROL Inhaler (OR & NICU) 2 puff IH QID PRN #1 inha 03/29/18 Unknown Rx [ProAir HFA Inhaler] oxyCODONE /ACETAMINOPHEN [Percocet 1 tab PO Q6HR PRN #10 tablet 03/29/18 Unknown Rx 5/325] Albuterol Sulfate [Ventolin HFA] 2 puff IH Q4H PRN #1 hfa.aer.ad 11/18/18 Unknown Rx Cetirizine HCl [ZyrTEC] 10 mg PO DAILY #30 capsule 11/18/18 Unknown Rx Fluticasone [Flonase] 1 spray NS QDAY #1 bottle 11/18/18 Unknown Rx predniSONE [Deltasone] 20 mg PO DAILY #5 tablet 11/18/18 Unknown Rx Allergies Allergy/AdvReac Type Severity Reaction Status Date / Time ketorolac tromethamine Allergy Vomiting Verified 05/27/14 15:42 [From Toradol] tramadol AdvReac Unknown Verified 05/27/14 15:42 ED Review of Systems ROS: Stated complaint: (L) RIB PAIN/BACK LEG PAIN Other details as noted in HPI Comment: All other systems reviewed and negative Constitutional: denies: chills, fever Cardiovascular: chest pain. denies: palpitations, dyspnea on exertion Gastrointestinal: abdominal pain. denies: nausea, vomiting, diarrhea, constipation, hematemesis, melena, hematochezia Musculoskeletal: back pain ED Past Medical Hx - Past Medical History Previous Medical History?: Yes Hx Hypertension: No Hx CVA: No Hx Heart Attack/AMI: No Hx Congestive Heart Failure: No Hx Diabetes: No Hx Deep Vein Thrombosis: No Hx GERD: Yes Hx Liver Disease: No Hx Renal Disease: No Hx Sickle Cell Disease: No Hx Arthritis: Yes Hx Seizures: No Hx Kidney Stones: No Hx Psychiatric Treatment: Yes (TOURETTE SYNDROME) Hx Asthma: Yes Hx COPD: No Hx Dementia: No Hx HIV: No Additional medical history: necrotizing pneumonia- september 2013 - Surgical History Past Surgical History?: Yes Hx Coronary Stent: No Hx Open Heart Surgery: No Hx Pacemaker: No Hx Internal Defibrillator: No Hx Cholecystectomy: No Hx Appendectomy: No Hx Breast Surgery: No Additional Surgical History: Left testicle removed @ age 16, Bakari in left leg @ age 26, R lower lobectomy, right rib removal - Social History Smoking Status: Never Smoker - Medications Home Medications: Home Medications Medication Instructions Recorded Confirmed Last Taken Type HYDROcodone/APAP 10-325 [[place] 1 each PO Q8HR PRN #12 tablet 07/13/17 03/27/18 03/26/18 Rx 10-325 mg TAB] ALBUTEROL NEB's [Proventil 0.083% 2.5 mg IH TID PRN #1 neb 03/03/18 03/27/18 03/26/18 Rx NEBS] ALBUTEROL Inhaler (OR & NICU) 2 puff IH QID PRN #1 inha 03/29/18 Unknown Rx [ProAir HFA Inhaler] oxyCODONE /ACETAMINOPHEN [Percocet 1 tab PO Q6HR PRN #10 tablet 03/29/18 Unknown Rx 5/325] Albuterol Sulfate [Ventolin HFA] 2 puff IH Q4H PRN #1 hfa.aer.ad 11/18/18 Unknown Rx Cetirizine HCl [ZyrTEC] 10 mg PO DAILY #30 capsule 11/18/18 Unknown Rx Fluticasone [Flonase] 1 spray NS QDAY #1 bottle 11/18/18 Unknown Rx predniSONE [Deltasone] 20 mg PO DAILY #5 tablet 11/18/18 Unknown Rx ED Physical Exam - General Limitations: No Limitations General appearance: alert, in no apparent distress - Head Head exam: Present: atraumatic, normocephalic, normal inspection - Eye Eye exam: Present: normal appearance, PERRL - ENT ENT exam: Present: normal exam, normal orophraynx, mucous membranes moist - Neck Neck exam: Present: normal inspection, full ROM. Absent: tenderness, meningismus, lymphadenopathy, thyromegaly - Respiratory Respiratory exam: Present: normal lung sounds bilaterally, chest wall tenderness (left lower chest tenderness, no palpable rib fracture) - Cardiovascular Cardiovascular Exam: Present: regular rate, normal rhythm, normal heart sounds - GI/Abdominal GI/Abdominal exam: Present: soft, normal bowel sounds. Absent: distended, tenderness, guarding, rebound, rigid, hyperactive bowel sounds, hypoactive bowel sounds, organomegaly, mass, bruit, pulsatile mass, hernia - Extremities Exam Extremities exam: Present: normal inspection, full ROM, normal capillary refill - Back Exam Back exam: Present: normal inspection, full ROM, CVA tenderness (L). Absent: tenderness, CVA tenderness (R), muscle spasm, paraspinal tenderness, vertebral tenderness - Neurological Exam Neurological exam: Present: alert, oriented X3, CN II-XII intact, reflexes normal - Psychiatric Psychiatric exam: Present: normal mood - Skin Skin exam: Present: warm, intact, normal color ED Course Vital Signs 06/08/19 06/08/19 06/08/19 10:36 11:00 13:57 Temperature 98.5 F Pulse Rate 95 H 90 72 Respiratory 20 12 18 Rate Blood Pressure 137/85 Blood Pressure 144/80 135/87 [Left] O2 Sat by Pulse 100 96 100 Oximetry ED Medical Decision Making - Lab Data Result diagrams: 06/08/19 11:56 06/08/19 11:56 - Radiology Data Radiology results: report reviewed - Medical Decision Making Patient is 48-year-old male with 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 Patient presented to the ER complaining of fall yesterday. Patient stated that he tripped and fell on his left side landing on a rail. Patient is complaining of left lower chest pain and left upper abdominal pain. She denied any head injury, loss of consciousness, neck injury or any other extremities injuries. Patient received morphine for pain. Patient stated that he is feeling much better. CT chest and CT abdomen and pelvis showed no acute finding including no pneumothorax. Patient advised to follow-up with his primary care physician in the next 2-3 days and to return to the ER if symptoms are not improved. Critical care attestation.: If time is entered above; I have spent that time in minutes in the direct care of this critically ill patient, excluding procedure time. ED Disposition Clinical Impression: Fall, Chest wall contusion, Abdominal contusion Disposition: - TO HOME OR SELFCARE Is pt being admited?: No Condition: Stable Instructions: Fall Prevention (ED), Contusion in Adults (ED) Referrals: PRIMARY CARE, [Primary Care Provider] - 3-5 Days
[2019-06-08 12:10] LABS: Basophils # (Auto) 0.1 K/mm3 (0.0-0.1); Eosinophils # (Auto) 0.3 K/mm3 (0.0-0.4); Eosinophils % (Auto) 4.2 % (0.0-4.3); Hematocrit 41.1 % (35.5-45.6); Lymphocytes # (Auto) 1.1 K/mm3 (1.2-5.4); Lymphocytes % (Auto) 16.8 % (13.4-35.0); Mean Corpuscular HGB Conc 34 % (32-34); Mean Corpuscular Volume 92 fl (84-94); Monocytes # (Auto) 0.8 K/mm3 (0.0-0.8); Monocytes % (Auto) 11.7 % (0.0-7.3); Platelet Count 222 K/mm3 (140-440); Red Blood Count 4.48 M/mm3 (3.65-5.03)
[2019-06-08 12:30] LABS: BUN/Creatinine Ratio 10; Blood Urea Nitrogen 7 mg/dL (9-20); Calcium 8.1 mg/dL (8.4-10.2); Hemolysis Index 3
[2019-06-08] MEDS ORDERED: MORPHINE 4 MG/1 ML INJ IM ONE (12:38)
[2019-06-08] MEDS ORDERED: MORPHINE 2 MG/1 ML INJ ONE (12:39)
[2019-06-08] MEDS ORDERED: MORPHINE 2 MG/1 ML INJ IM ONE (12:39)
--- NOTE | 2019-06-08 13:43 | Cat Scan Report ---
CT CHEST WITH CONTRAST INDICATION / CLINICAL INFORMATION: trauma, s/p fall, left sided chest pain. TECHNIQUE: Axial CT images were obtained through the chest after IV contrast. Sagittal and coronal reformatted i mages. All CT scans at this location are performed using CT dose reduction for ALARA by means of auto mated exposure control. COMPARISON: 11/17/2018 FINDINGS: HEART: No significant abnormality. THORACIC AORTA: No significant abnormality. MEDIASTINUM and JAMILA: No significant abnormality. LUNGS: Advanced underlying emphysematous changes are identified. Mild volume loss in the right lung i s evident suggesting partial right pneumonectomy, correlate with history. There is no evidence for in filtrate or mass. Trace layering right pleural effusion measures up to 1 cm in thickness. No pneumot horax. SKELETAL SYSTEM: Previous right thoracotomy changes are suspected, correlate with history. No acute a cute fracture is identified. There does appear to be a chronic ununited fracture in the right lateral sixth rib. UPPER ABDOMEN: No significant abnormality. ADDITIONAL FINDINGS: None. IMPRESSION: No acute cardiopulmonary process. Emphysema. Surgical changes in the right lung, correlate with history. 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 No acute fracture is detected. Signer Name: Edgardo Ortega Jr, MD Signed: 06/08/2019 1:39 PM Workstation Name: [id number]
[2019-06-08 13:59] VITALS: BP 135/87
--- NOTE | 2019-06-08 14:01 | Cat Scan Report ---
CT ABDOMEN AND PELVIS WITH CONTRAST HISTORY: trauma, s/p fall, left sided chest pain. COMPARISON: CT chest from 11/17/2018 TECHNIQUE: CT images of the abdomen and pelvis were obtained following administration of intravenous contrast. All CT scans at this location are performed using CT dose reduction for ALARA by means of automated exposure control. CONTRAST: 100 ml of intravenous contrast administered. FINDINGS: Lungs/bones: There are moderate emphysematous changes once again with small partially loculated righ t basilar effusion and scarring/atelectasis. The appearance is similar to the comparison exam. Lung b ases are otherwise clear. No acute fracture identified. There are degenerative changes within the spi ne and pelvis. Abdomen/pelvis: There is moderate hepatic steatosis. The gallbladder, spleen, pancreas, adrenals, ki dneys, and proximal GI tract appear unremarkable. Urinary bladder and prostate are unremarkable with no pelvic free fluid. No acute colonic abnormality identified. The terminal ileum is normal. The appendix is surgically absent. IMPRESSION: 1. No acute abnormality identified. 2. Chronic-appearing changes in the right lung base. Signer Name: Darryl Nicholas MD Signed: 06/08/2019 1:56 PM Workstation Name: [id number]
== END 2019-06-08 14:31 | disposition home or self-care (01) ==
LOC: ED 10:15
DX: S30.1XXA Contusion of abdominal wall, initial encounter (principal); S20.219A Contusion of unspecified front wall of thorax, initial encounter; K21.9 Gastro-esophageal reflux disease without esophagitis; M19.90 Unspecified osteoarthritis, unspecified site; Z79.899 Other long term (current) drug therapy; Z88.8 Allergy status to other drugs, medicaments and biological substances; W01.0XXA Fall on same level from slipping, tripping and stumbling without subsequent striking against object, initial encounter; Y93.89 Activity, other specified; Y92.89 Other specified places as the place of occurrence of the external cause; Y99.8 Other external cause status
CPT/HCPCS: 36415; 71046; 71260; 74177; 80048; 85025; 96372; 96374; 96375; 99285; J2270; J2405; J7030; Q9967

== ENCOUNTER 2021-12-01 21:36 | Emergency (ER) | payer MEDICAID ==
[2021-12-01] MEDS ORDERED: LORazepam 2 MG/ML VIAL IV ONE (22:01)
[2021-12-01] MEDS ORDERED: ALBUTEROL 2.5 MG/3 ML NEBU IH ONE (22:03)
[2021-12-01 22:19] VITALS: BP 137/96
[2021-12-01] MEDS ORDERED: MORPHINE 4 MG/1 ML INJ IV ONE (22:26)
--- NOTE | 2021-12-01 22:32 | XRay Report ---
Chest single view INDICATION: Dyspnea IMPRESSION: Persistent pleural-parenchymal scarring along the right lower hemithorax is unchanged fro m 06/08/2019. The left lung is hyperexpanded and there is emphysematous change bilaterally. No new fin dings. Signer Name: Anjum Trejo MD Signed: 12/01/2021 10:27 PM Workstation Name: [id number]
--- NOTE | 2021-12-01 23:11 | Emergency Department Report ---
ED Shortness of Breath HPI - General Chief Complaint: Dyspnea/Respdistress Stated Complaint: SOB Time Seen by Provider: 12/01/21 21:56 Source: patient Mode of arrival: Stretcher Limitations: Physical Limitation - History of Present Illness Initial Comments: Patient is a 50-year-old male with history of emphysema brought in by EMS for evaluation of shortness of breath and chest pain. He states his symptoms began 3 days ago. He is on home oxygen at 3 L. States he took all meds however did not get any relief. He denies any fever or chills. The chest pain is localized to the right lower chest where he states he had a partial pneumectomy. MD Complaint: shortness of breath, chest pain, anxiety Severity: severe Improves With: nothing Worsens With: nothing - Related Data Home Oxygen Therapy: Yes Home Oxygen Amount: 3 Liters Previous Rx's Medication Instructions Recorded Last Taken Type HYDROcodone/APAP 10-325 [[place] 1 each PO Q8HR PRN #12 tablet 07/13/17 03/26/18 Rx 10-325 mg TAB] ALBUTEROL NEB's [Proventil 0.083% 2.5 mg IH TID PRN #1 neb 03/03/18 03/26/18 Rx NEBS] Albuterol Mdi (or & Nicu Only) 2 puff IH QID PRN #1 inha 03/29/18 Unknown Rx [ProAir HFA Inhaler] oxyCODONE /ACETAMINOPHEN [Percocet 1 tab PO Q6HR PRN #10 tablet 03/29/18 Unknown Rx 5/325] Albuterol Sulfate [Ventolin HFA] 2 puff IH Q4H PRN #1 hfa.aer.ad 11/18/18 Unknown Rx Cetirizine HCl [ZyrTEC] 10 mg PO DAILY #30 capsule 11/18/18 Unknown Rx Fluticasone [Flonase] 1 spray NS QDAY #1 bottle 11/18/18 Unknown Rx predniSONE [Deltasone] 20 mg PO DAILY #5 tablet 11/18/18 Unknown Rx HYDROcodone/APAP 5-325 [[place] 1 each PO Q6HR PRN #14 tablet 06/08/19 Unknown Rx 5-325 mg TAB] Ondansetron [Zofran Odt] 4 mg PO Q8HR PRN #14 tab.rapdis 06/08/19 Unknown Rx Allergies Allergy/AdvReac Type Severity Reaction Status Date / Time ketorolac tromethamine Allergy Vomiting Verified 05/27/14 15:42 [From Toradol] tramadol AdvReac Unknown Verified 05/27/14 15:42 ED Review of Systems ROS: Stated complaint: SOB Other details as noted in HPI Constitutional: denies: chills, fever Respiratory: SOB at rest Cardiovascular: chest pain. denies: palpitations Gastrointestinal: denies: abdominal pain, nausea, vomiting Musculoskeletal: denies: back pain, joint swelling, arthralgia Skin: denies: rash, lesions Neurological: denies: headache, weakness, paresthesias Psychiatric: denies: anxiety, depression ED Past Medical Hx - Past Medical History Previous Medical History?: Yes Hx Hypertension: No Hx CVA: No Hx Heart Attack/AMI: No Hx Congestive Heart Failure: No Hx Diabetes: No Hx Deep Vein Thrombosis: No Hx GERD: Yes Hx Liver Disease: No Hx Renal Disease: No Hx Sickle Cell Disease: No Hx Arthritis: Yes Hx Seizures: No Hx Kidney Stones: No Hx Psychiatric Treatment: Yes (TOURETTE SYNDROME) Hx Asthma: Yes Hx COPD: No Hx Dementia: No Hx HIV: No Additional medical history: necrotizing pneumonia- september 2013. aLPHA 1 ANTITRYYSIN - Surgical History Past Surgical History?: Yes Hx Coronary Stent: No Hx Open Heart Surgery: No Hx Pacemaker: No Hx Internal Defibrillator: No Hx Cholecystectomy: No Hx Appendectomy: No Hx Breast Surgery: No Additional Surgical History: Left testicle removed @ age 16, Bakari in left leg @ age 26, R lower lobectomy, right rib removal - Social History Smoking Status: Never Smoker Substance Use Type: None - Medications Home Medications: Home Medications Medication Instructions Recorded Confirmed Last Taken Type HYDROcodone/APAP 10-325 [[place] 1 each PO Q8HR PRN #12 tablet 07/13/17 03/27/18 03/26/18 Rx 10-325 mg TAB] ALBUTEROL NEB's [Proventil 0.083% 2.5 mg IH TID PRN #1 neb 03/03/18 03/27/18 03/26/18 Rx NEBS] Albuterol Mdi (or & Nicu Only) 2 puff IH QID PRN #1 inha 03/29/18 Unknown Rx [ProAir HFA Inhaler] oxyCODONE /ACETAMINOPHEN [Percocet 1 tab PO Q6HR PRN #10 tablet 03/29/18 Unknown Rx 5/325] Albuterol Sulfate [Ventolin HFA] 2 puff IH Q4H PRN #1 hfa.aer.ad 11/18/18 Unknown Rx Cetirizine HCl [ZyrTEC] 10 mg PO DAILY #30 capsule 11/18/18 Unknown Rx Fluticasone [Flonase] 1 spray NS QDAY #1 bottle 11/18/18 Unknown Rx predniSONE [Deltasone] 20 mg PO DAILY #5 tablet 11/18/18 Unknown Rx HYDROcodone/APAP 5-325 [[place] 1 each PO Q6HR PRN #14 tablet 06/08/19 Unknown Rx 5-325 mg TAB] Ondansetron [Zofran Odt] 4 mg PO Q8HR PRN #14 tab.rapdis 06/08/19 Unknown Rx ED Physical Exam - General Limitations: Physical Limitation General appearance: alert, anxious, in distress - Head Head exam: Present: atraumatic, normocephalic - Neck Neck exam: Present: normal inspection - Respiratory Respiratory exam: Present: respiratory distress, decreased breath sounds - Cardiovascular Cardiovascular Exam: Present: regular rate, normal rhythm. Absent: systolic murmur, diastolic murmur, rubs, gallop - GI/Abdominal GI/Abdominal exam: Present: soft. Absent: distended, tenderness - Rectal Rectal exam: Present: deferred - Neurological Exam Neurological exam: Present: alert, oriented X3, CN II-XII intact - Psychiatric Psychiatric exam: Present: normal affect, normal mood - Skin Skin exam: Present: warm, dry, intact, normal color ED Course Vital Signs 12/01/21 12/01/21 12/01/21 21:47 22:17 22:57 Temperature 98 F Pulse Rate 97 H 104 H Pulse Rate [ 107 H Bilateral Throughout] Respiratory 18 20 Rate Respiratory 30 H Rate [Bilateral Throughout] Blood Pressure 175/111 Blood Pressure 137/96 [Right] O2 Sat by Pulse 99 95 Oximetry ED Medical Decision Making - Lab Data Result diagrams: 12/01/21 22:54 12/01/21 22:54 - EKG Data -: EKG Interpreted by Dc EKG shows normal: sinus rhythm, axis, intervals, QRS complexes, ST-T waves Rate: normal - Radiology Data Radiology results: report reviewed Chest x-ray unchanged from previous study. - Medical Decision Making CBC and CMP grossly unremarkable. Chest x-ray unchanged from previous study. Patient is currently satting 94% on his normal 3 L. He was given albuterol neb along with IV opioid pain medications. On reassessment he appears more comfortable. EKG is normal. He is stable for discharge home with return precautions. Critical care attestation.: If time is entered above; I have spent that time in minutes in the direct care of this critically ill patient, excluding procedure time. ED Disposition Clinical Impression: Emphysema, Non-cardiac chest pain Disposition: HOME / SELF CARE / HOMELESS Is pt being admited?: No Does the pt Need Aspirin: No Condition: Stable Instructions: Chronic Obstructive Pulmonary Disease (ED), Chronic Obstructive Pulmonary Disease, Nonspecific Chest Pain, Adult
[2021-12-01] MEDS ORDERED: HYDROcodone/ACETAMINOPHEN 5-325 MG TAB PO ONE (23:23)
[2021-12-01 23:34] LABS: Basophils % (Auto) 0.6 % (0.0-1.8); Eosinophils # (Auto) 0.4 K/mm3 (0.0-0.4); Eosinophils % (Auto) 4.6 % (0.0-4.3); Hematocrit 46.8 % (35.5-45.6); Hemoglobin 15.4 gm/dl (11.8-15.2); Lymphocytes # (Auto) 0.8 K/mm3 (1.2-5.4); Lymphocytes % (Auto) 9.7 % (13.4-35.0); Mean Corpuscular HGB Conc 33 % (32-34); Mean Corpuscular Volume 94 fl (84-94); Monocytes # (Auto) 1.3 K/mm3 (0.0-0.8); Monocytes % (Auto) 15.8 % (0.0-7.3); Platelet Count 218 K/mm3 (140-440); Red Cell Distribution Width 13.4 % (13.2-15.2)
[2021-12-01] MEDS ORDERED: HYDROmorphone 1 MG/1 ML INJ IV ONE (23:40)
[2021-12-01 23:53] LABS: Alanine Aminotransferase 15 units/L (7-56); Albumin 4.2 g/dL (3.9-5); Blood Urea Nitrogen 7 mg/dL (9-20); Hemolysis Index 3
[2021-12-01 23:55] LABS: BUN/Creatinine Ratio 10
[2021-12-02] MEDS ORDERED: guaiFENesin ER 600 MG TAB PO ONE (00:02)
--- NOTE | 2021-12-02 13:48 | Electrocardiograph Report ---
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
== END 2021-12-02 00:29 | disposition home or self-care (01) ==
LOC: ED 21:36
DX: J43.9 Emphysema, unspecified (principal); R07.89 Other chest pain; K21.9 Gastro-esophageal reflux disease without esophagitis; J45.909 Unspecified asthma, uncomplicated; Z79.899 Other long term (current) drug therapy; Z98.890 Other specified postprocedural states; Z91.09 Other allergy status, other than to drugs and biological substances
CPT/HCPCS: 36415; 71045; 80053; 85025; 93005; 94640; 96374; 96375; 99284; J1170; J2060; J2270; 94644